=== PATIENT | male | born 1950 | race Caucasian/White ===

== ENCOUNTER 2016-08-19 14:08 | Inpatient (IN) | payer OTHER, MEDICARE ==
[~2016-08-19] VITALS: Ht 170.2 cm; Wt 76.9 kg
[~2016-08-19 14:08] MED LIST: ASPI81CH25 PO; BRIL90TA PO; CARV3.125 PO; LIPI40TA PO; LISI-519 PO; NITR1SUB3 SL
[2016-08-26] VITALS (10 sets, daily range): BP systolic 91–151; BP diastolic 62–88; PULSE 58–99; RESP 12–18; TEMP 97–97.5; O2SAT 98–99
[2016-08-26] MEDS ORDERED: VECURONIUM BROMIDE 10 MG VIAL IV ONE (05:00)
[2016-08-26] MEDS ORDERED: HEPARIN SODIUM - SQ 10,000 UNITS/ML VIAL SQ ONE (05:00)
[2016-08-26] MEDS ORDERED: ESMOLOL HCL 100 MG/10 ML VIAL IV ONE (05:00)
[2016-08-26] MEDS ORDERED: PROPOFOL 1000 MG/100 ML INJ 100 ML IV ONE (05:00)
[2016-08-26] MEDS ORDERED: NITROGLYCERIN-DEXTROSE INJ 250 ML IV ONE (05:00)
[2016-08-26] MEDS ORDERED: DEXTROSE 5% IN WATER 100ML INJ 100 ML IV ONE (05:00)
[2016-08-26] MEDS ORDERED: PHENYLEPHRINE HCL 10 MG/ML VIAL IV ONE (05:00)
[2016-08-26] MEDS ORDERED: MILRINONE LACTATE 20 MG/20 ML VIAL IV ONE (05:00)
[2016-08-26] MEDS ORDERED: MAGNESIUM SULFATE 1000 MG/2 ML VIAL (PED) IV ONE (05:00)
[2016-08-26] MEDS ORDERED: DEXMEDETOMIDINE INJ 50 ML IV ONE (05:00)
[2016-08-26] MEDS ORDERED: LIDOCAINE HCL 1% 30 ML VIAL OTHER ONE (05:00)
[2016-08-26] MEDS ORDERED: AMINOCAPROIC ACID INJ 250 MG/ML 20 ML VIAL IV ONE (05:00)
[2016-08-26] MEDS ORDERED: LIDOCAINE HCL 2% 100 MG/5 ML SYRINGE IV PUSH ONE (05:00)
[2016-08-26] MEDS ORDERED: PROTAMINE SULFATE 250 MG/25 ML VIAL IV ONE ×2 (05:00→11:26)
[2016-08-26] MEDS ORDERED: METOPROLOL TARTRATE 25 MG TAB PO SCH (06:15)
[2016-08-26] MEDS ORDERED: INSULIN REGULAR 100 UNITS in NS 100 ML IV SCH (06:15)
[2016-08-26] MEDS: LACTATED RINGER'S 1000 ML IV SCH (06:15)
[2016-08-26] MEDS ORDERED: SODIUM CHLORIDE 0.9% FLUSH 5 ML FLUSH IV FLUSH PRN ×2 (06:15→13:30)
[2016-08-26] MEDS ORDERED: CEFAZOLIN 500 MG in NS IRR BTL 500 ML IRRIGATION SCH (06:15)
[2016-08-26] MEDS ORDERED: PAPAVERINE 60 MG-NITROGLYCERIN 100 MCG-DILTIAZEM 100 MG in NS 100 ML IRRIGATION SCH ×4 (06:15)
[2016-08-26] MEDS ORDERED: ceFAZolin 2 GM PREMIX 50 ML IV SCH (06:15)
[2016-08-26] MEDS ORDERED: CHLORHEXIDINE GLUCONATE 4% SOLN 120 ML BTL TOPICAL SCH (06:15)
[2016-08-26] MEDS ORDERED: INSULIN HUMAN REGULAR 1,000 UNITS/10 ML VIAL SQ PRN (06:15)
[2016-08-26] MEDS ORDERED: HEPARIN SODIUM - IV 10,000 UNITS/10 ML VIAL ONE (06:24)
[2016-08-26] MEDS ORDERED: VANCOMYCIN HCL 1000 MG VIAL ONE (06:24)
[2016-08-26] MEDS ORDERED: HEPARIN SODIUM - SQ 10,000 UNITS/ML VIAL ONE (06:25)
[2016-08-26] MEDS ORDERED: BUPIVACAINE LIPOSO PF 1.3% INJ 20 ML, DEXAMETHASONE INJ 4 MG in SODIUM CHLORIDE 0.9% IN... PERIART SCH (08:45)
[2016-08-26] MEDS ORDERED: BUPIVACAINE HCL PF 0.5% 30 ML VIAL ONE (09:46)
--- NOTE | 2016-08-26 13:18 | RADRPT ---
EXAM DATE/TIME: 08/26/2016 12:41 [facility] COMPARISON: No previous studies available for comparison. INDICATIONS : Instrument verification. MEDICAL HISTORY : None. SURGICAL HISTORY : None. ENCOUNTER: Initial ACUITY: 1 day PAIN SCORE: Non-responsive. LOCATION: chest FINDINGS: The lateral view is incomplete and uninterpretable. There are 2 linear radiopaque densities in the ce ntral chest of unknown etiology. They have been marked with arrows. The remainder of the radiopaque d ensities are characteristic of support apparatus and sternotomy wires. Additional radiographs recomme nded to better evaluate the above findings. CONCLUSION: 1. Incomplete exam. See above discussion. Branden Hua MD on August 26, 2016 at 13:13 Board Certified Radiologist. This report was verified electronically.
[2016-08-26] MEDS ORDERED: DOBUTamine PREMIX DRIP 250 ML IV SCH (13:25)
[2016-08-26] MEDS ORDERED: DOPamine INJ PREMIX 500 ML IV SCH (13:30)
[2016-08-26] MEDS ORDERED: Post-op Orders (for Pharmacy) MISC OTHER ONE (13:30)
[2016-08-26] MEDS ORDERED: DEXTROSE 50% IN WATER 50 ML VIAL(D50) IV PUSH PRN (13:30)
[2016-08-26] MEDS ORDERED: PHENYLEPHRINE INJ 40 MG in DEXTROSE 5% IN WATE 500 ML INJ 496 ML IV SCH ×2 (13:30)
[2016-08-26] MEDS ORDERED: MEPERIDINE HCL 25 MG/ML VIAL IV PRN (13:30)
[2016-08-26] MEDS ORDERED: INSULIN REGULAR (IV INFUSION) 100 UNITS in SODIUM CHLORIDE 0.9% INJ 99 ML IV SCH (13:30)
[2016-08-26] MEDS ORDERED: ACETAMINOPHEN 650 MG SUPP RECTAL PRN (13:30)
[2016-08-26] MEDS ORDERED: POTASSIUM CHLOR 20 MEQ PREMIX 100 ML IV PRN ×2 (13:30)
[2016-08-26] MEDS ORDERED: KETOROLAC TROMETHAMINE 30 MG/ML (IVP) VIAL IV PUSH PRN (13:30)
[2016-08-26] MEDS ORDERED: METOPROLOL TARTRATE 5 MG/5 ML VIAL IV PUSH PRN (13:30)
[2016-08-26] MEDS ORDERED: ACETAMINOPHEN 325 MG TAB PO PRN (13:30)
[2016-08-26] MEDS ORDERED: ALBUMIN HUMAN 5% 12.5 GM/250 ML BOTTLE IV PRN (13:30)
[2016-08-26] MEDS ORDERED: DEXMEDETOMIDINE INJ 50 ML IV SCH (13:30)
[2016-08-26] MEDS ORDERED: MAGNESIUM SULFATE INJ 2 GM in SODIUM CHLORIDE 0.9% INJ 100 ML IV PRN (13:30)
[2016-08-26] MEDS ORDERED: hydrALAZINE HCL 20 MG/ML VIAL IV PRN (13:30)
[2016-08-26] MEDS ORDERED: POTASSIUM CHLORIDE 20 MEQ CONTROLLED RELEASE TAB PO PRN ×2 (13:30)
[2016-08-26] MEDS ORDERED: CALCIUM CHLORIDE 10% 1 GRAM/10 ML VIAL IV PRN (13:30)
[2016-08-26] MEDS ORDERED: MORPHINE SULFATE 4 MG/ML INJ IV PRN (13:30)
[2016-08-26] MEDS ORDERED: CLEVIDIPINE INJ 50 ML IV SCH (13:30)
[2016-08-26] MEDS ORDERED: NITROGLYCERIN-DEXTROSE INJ 250 ML IV SCH (13:30)
[2016-08-26] MEDS ORDERED: EPINEPHrine (1:1000) INJ 4 MG in DEXTROSE 5% IN WATER INJ 246 ML IV SCH ×2 (13:30)
[2016-08-26] MEDS ORDERED: LACTATED RINGER'S 1000 ML INJ 500 ML IV PRN (14:00)
[2016-08-26] MEDS ORDERED: MIDAZOLAM HCL 5 MG/5 ML VIAL ONE ×2 (14:45→14:46)
[2016-08-26] MEDS ORDERED: fentaNYL CITRATE 1000 MCG/20 ML VIAL ONE ×2 (14:46)
--- NOTE | 2016-08-26 15:14 | RADRPT ---
EXAM DATE/TIME: 08/26/2016 14:35 [facility] COMPARISON: CHEST SINGLE AP, August 26, 2016, 12:41. INDICATIONS: S/p CABG. MEDICAL HISTORY: Hypertension. Hypercholesterolemia, Meniere's disease, coronary artery disease SURGICAL HISTORY: Cardiac surgery. ENCOUNTER: Initial ACUITY: 1 day PAIN SCORE: Non-responsive. LOCATION: Bilateral chest FINDINGS: ET tube, mediastinal drain, central venous catheter and left chest tube are in good position. There is no pneumothorax. Heart and pulmonary vascularity are normal. CONCLUSION: Support apparatus in good position. Minimal parenchymal changes are present in the left base. Suhas Adkins MD FACR on August 26, 2016 at 15:02 Board Certified Radiologist. This report was verified electronically.
[2016-08-26] MEDS: ACETAMINOPHEN 1000 MG/100 ML VIAL IV SCH ×2 (15:24→20:40)
[2016-08-26] MEDS: ceFAZolin 2 GM PREMIX 50 ML IV SCH (15:25)
[2016-08-26] MEDS: CALCIUM CHLORIDE INJ 1 GM in SODIUM CHLORIDE 0.9% INJ 100 ML IV PRN (15:25)
[2016-08-26] MEDS ORDERED: METOPROLOL TARTRATE 5 MG/5 ML VIAL IV PUSH ONE (15:45)
[2016-08-26] MEDS ORDERED: RESP: RACEPINEPHRINE 2.25% 0.5 ML NEB NEB PRN (16:00)
[2016-08-26] MEDS ORDERED: RESP: ALBUTEROL 2.5 MG/IPRATROPIUM 0.5 MG NEB (PRN) NEB (16:00)
--- NOTE | 2016-08-26 16:05 | RADRPT ---
EXAM DATE/TIME: 08/26/2016 13:39 [facility] COMPARISON: No previous studies available for comparison. INDICATIONS : Instrument verification. MEDICAL HISTORY : None. SURGICAL HISTORY : None. ENCOUNTER: Initial ACUITY: 1 day PAIN SCORE: Non-responsive. LOCATION: chest FINDINGS: Postoperative median sternotomy. Endotracheal tube noted with radiopaque densities just above the car debby and left mainstem bronchus. Bilateral chest tubes. Right central line. CONCLUSION: 1. No unexpected radiopaque foreign bodies. Specifically no needle identified. Findings communicated with Dr. Hernandez. Branden Hua MD on August 26, 2016 at 16:01 Board Certified Radiologist. This report was verified electronically.
[2016-08-26] MEDS: RESP: ALBUTEROL 2.5 MG/IPRATROPIUM 0.5 MG NEB (SCH) NEB ×2 (16:27→21:15)
--- NOTE | 2016-08-26 16:30 | PD.OP ---
cc: Anita Hernandez MD; Ross Guzmán MD Operative Report Date of Surgery: Aug 26, 2016 Preoperative Diagnosis: Postoperative Diagnosis: Procedure: 1. Attempted Minimally Invasive Coronary Artery Bypass Grafting 2. Clampless Off-pump Coronary Artery Bypass Grafting x 3 with left internal mammary artery (HERNANDEZ) to left anterior descending (LAD), sequential reverse saphenous vein graft to Diagonal 1and to the Diagonal 2 2. Right Leg Endoscopic Vein [place] 3. Intraoperative Vein Mapping. . Surgeon: Anita Hernandez Green Meat Grader(s): Karl Sullivan Operation and Findings: PREPROCEDURE DIAGNOSES 1. Severe Multi Vessel Coronary Artery Disease. 2. Acute Myocardial Infarction - s/p emergent PCI 3. Mild Left Ventricular Dysfunction POSTPROCEDURE DIAGNOSES 1. Severe Multi Vessel Coronary Artery Disease. 2. Acute Myocardial Infarction - s/p emergent PCI 3. Mild Left Ventricular Dysfunction 4. Severe Pericarditis SURGICAL PROCEDURE 1. Attempted Minimally Invasive Coronary Artery Bypass Grafting 2. Clampless Off-pump Coronary Artery Bypass Grafting x 3 with left internal mammary artery (HERNANDEZ) to left anterior descending (LAD), sequential reverse saphenous vein graft to Diagonal 1and to the Diagonal 2 2. Right Leg Endoscopic Vein [place] 3. Intraoperative Vein Mapping. SURGEON Anita Hernandez MD REPAIR MILLER HARDIK [place] SEAL EXTRUSION OPERATOR ANESTHESIA General endotracheal . FIBER OPTIC TECHNICIAN Luma Castro, KATALINA Atkins, KATALINA James MD PREPARATION ChloraPrep. COUNTS Needle, sponge, and instrument counts were correct. DRAINS Two 32-[place] mediastinal tubes. COMPLICATIONS None. INDICATIONS FOR PROCEDURE The patient is a 66-year-old presenting with chest pain and STEMI. Patient was noted to have multi-vessel coronary artery disease and underwent emergent PCI to the RCA. The patient is being brought to the operating room for surgical revascularization therapy of the remaining lesions. PROCEDURE Patient was brought to the operating room and placed supine on the OR table with the left side slightly bumped. Following the induction of adequate general double-lumen endotracheal anesthesia and placement of appropriate monitoring devices, intraoperative vein mapping was performed which revealed suitable- caliber conduit in bilateral lower extremities. The patient was then prepped and draped in standard sterile fashion. Next, 2500 units of intravenous heparin was given. The right greater saphenous vein was harvested endoscopically. This appeared to be a useable-caliber conduit. Simultaneously, a small left anterior mini-thoracotomy was made and the incision carried down to the pectoralis fascia. This was divided and the pleural space was entered in the 4th ICS. It was noted that the heart and pericardial were densely adherent to the anterior chest wall. Sharp and blunt dissection was used to free up the anterior pericardial surface and expose the HERNANDEZ. Using the Thoratek retractor the HERNANDEZ was harvested as a pedicle from the Subclavian vein down to its bifurcation. The patient was systemically heparinized and anticoagulation monitored by serial ACT measurements. The internal mammary artery had good pulsatile flow in it and was a decent-caliber conduit. The pericardium was then divided and targets analyzed. Exploration of the anterior surface of the heart revealed severe pericarditis making visualization of the targets very difficult. Additionally, a separate anterior target vessel was identified in the LAD location which was not apparent on the coronary angiogram. Given this, I decided to proceed with a medial sternotomy to be able to accurately define the coronary anatomy and perform the necessary bypasses. The retractor was removed and a standard medial sternotomy performed. Indeed, the LAD and two diagonal vessels were identified and plans made to bypass all three targets. At this point, all anastomoses were performed in a beating-heart fashion using the Maquet stabilizing system. The left internal mammary artery was anastomosed to the mid LAD in an end-to-side fashion using 7-0 Prolene. Segment of saphenous vein graft was then anastomosed sequentially to the diagonal 1 in a side-to- side fashion and to the diagonal 2 in an end-to-side fashion using 7-0 Prolene.The proximal anastomosis was then constructed to the ascending aorta in a running clampless manner using 6-0 Prolene and the Heartstring III device. All anastomotic sites were inspected and appeared to be hemostatic and patent. Protamine solution was given. Strict hemostasis was assured. The closure was undertaken. 2 chest tubes were placed. The pericardium was reapproximated in the midline. The sternum was approximated using sternal wires. The muscular and fascial layer were then closed in 3 layers. The anterior thoracotomy was closed in 3 layers and dermabond. The endoscopic vein harvest site was closed in 2 layers. The patient tolerated the procedure well and was transferred to CVICU in stable condition. Anita Hernandez MD Aug 26, 2016 16:30
[2016-08-26] MEDS: POTASSIUM CHLOR 20 MEQ PREMIX 100 ML IV PRN ×2 (16:35→22:04)
[2016-08-26] MEDS: ONDANSETRON HCL 4 MG/2 ML VIAL IV PUSH PRN (17:33)
[2016-08-26] MEDS: AMIODARONE 200 MG TAB PO SCH (20:40)
[2016-08-26] MEDS: SODIUM CHLORIDE 0.9% FLUSH 5 ML FLUSH IV FLUSH SCH ×2 (20:40→20:41)
[2016-08-27] VITALS (21 sets, daily range): BP systolic 94–118; BP diastolic 61–71; PULSE 59–89; RESP 16–36; TEMP 97.8–98.4; O2SAT 91–99
[2016-08-27] MEDS: CALCIUM CHLORIDE INJ 1 GM in SODIUM CHLORIDE 0.9% INJ 100 ML IV PRN (00:31)
[2016-08-27] MEDS: ceFAZolin 2 GM PREMIX 50 ML IV SCH ×4 (00:31→23:44)
[2016-08-27] MEDS: ACETAMINOPHEN 1000 MG/100 ML VIAL IV SCH ×2 (02:11→08:21)
[2016-08-27] MEDS: RESP: ALBUTEROL 2.5 MG/IPRATROPIUM 0.5 MG NEB (SCH) NEB ×3 (03:42→21:48)
--- NOTE | 2016-08-27 04:30 | RADRPT ---
EXAM DATE/TIME: 08/27/2016 03:29 [facility] COMPARISON: CHEST SINGLE AP, August 26, 2016, 14:35. INDICATIONS : Shortness of breath, possible pulmonary disease. MEDICAL HISTORY : Hypertension. Hypercholesterolemia. Coronary artery disease. SURGICAL HISTORY : CABG. ENCOUNTER: Subsequent ACUITY: 2 days PAIN SCORE: 7/10 LOCATION: Bilateral chest FINDINGS: Interval extubation and removal of the nasogastric tube. Right-sided central line and 2 thoracostomy tubes remain. No pneumothorax. Bibasilar consolidation is more pronounced from the prior study. No di screte effusions. Heart mildly enlarged. Median sternotomy wires noted. CONCLUSION: Worsening bibasilar consolidation. Adelso Zarate Jr., MD on August 27, 2016 at 4:27 Board Certified Radiologist. This report was verified electronically.
[2016-08-27 05:20] LABS: HEMATOCRIT 25.9 % (39.0-51.0); MEAN CORPUSCULAR HGB CONC 35.2 % (32.0-36.0); PLATELET COUNT 97 TH/MM3 (150-450); RED BLOOD COUNT 2.95 MIL/MM3 (4.50-5.90); RED CELL DISTRIBUTION WIDTH 13.9 % (11.6-17.2); WHITE BLOOD COUNT 8.8 TH/MM3 (4.0-11.0)
[2016-08-27 05:27] LABS: REVIEW FLAG FINAL
[2016-08-27 05:53] LABS: BICARBONATE 22.4 MEQ/L (21.0-32.0); MAGNESIUM 1.5 MG/DL (1.5-2.5); POTASSIUM 3.6 MEQ/L (3.5-5.1)
[2016-08-27 06:04] LABS: CALCIUM-PROTEIN CORRECTED 8.9 MG/DL (8.5-10.1)
[2016-08-27] MEDS: LACTATED RINGER'S 1000 ML IV SCH (06:15)
[2016-08-27] MEDS: PANTOPRAZOLE SOD 40 MG DELAYED RELEASE TAB PO SCH (06:24)
[2016-08-27] MEDS: oxyCODONE/ACETAMINOPHEN 5 MG/325 MG TAB PO PRN ×4 (06:26→20:28)
--- NOTE | 2016-08-27 07:36 | EKG ---
Date Performed: 08/27/2016 Time Performed: 04:58:40 PTAGE: 66 years EKG: Sinus rhythm Nonspecific T wave changes Abnormal ECG COMPARED TO PRIOR ELECTROCARDIOGRAM, Rate has slowed and ST- T wave changes are less marked. PREVIOUS TRACING : 07/22/2016 06.34 DOCTOR: Claude oLcke Interpretating Date/Time 08/27/2016 07:34:33
[2016-08-27] MEDS: POTASSIUM CHLOR 20 MEQ PREMIX 100 ML IV PRN (07:44)
[2016-08-27] MEDS: MAGNESIUM SULFATE INJ 2 GM in SODIUM CHLORIDE 0.9% INJ 100 ML IV PRN (08:41)
[2016-08-27] MEDS: ASPIRIN 81 MG CHEW TAB PO SCH (09:00)
[2016-08-27] MEDS: CLOPIDOGREL 75 MG TAB PO SCH (09:02)
[2016-08-27] MEDS: AMIODARONE 200 MG TAB PO SCH ×2 (09:02→20:27)
[2016-08-27] MEDS: SODIUM CHLORIDE 0.9% FLUSH 5 ML FLUSH IV FLUSH SCH ×3 (09:02→20:29)
[2016-08-27] MEDS ORDERED: BISACODYL 10 MG SUPP RECTAL PRN (09:15)
[2016-08-27] MEDS ORDERED: DEXTROSE 50% IN WATER 50 ML VIAL(D50) IV PRN (09:15)
[2016-08-27] MEDS ORDERED: GLUCAGON 1 MG/ML VIAL OTHER PRN (09:15)
[2016-08-27] MEDS ORDERED: SOD PHOSPHATE/SOD BIPHOSPHATE (ADULT) ENEMA 133ML RECTAL PRN (09:15)
--- NOTE | 2016-08-27 09:29 | PD.CAR.PN ---
CVT Progress Note CVT: POD #: 1 Subjective/Hospital Course: 66/ male , HX CAD, s/p STEMI in Nov s/p PCI stent to RCA per Dr Meme Guzmán, also multi vessel disease, EF 55 on Brilinta at home PMH : HTN, HLP surgery: 08/26 Attempted Minimally Invasive Coronary Artery Bypass Grafting Clampless Off-pump Coronary Artery Bypass Grafting x 3 with left internal mammary artery (HERNANDEZ) to left anterior descending (LAD), sequential reverse saphenous vein graft to Diagonal 1and to the Diagonal 2 Right Leg Endoscopic Vein [place] atraumatic intubation EBL 250cc/ cell saver 770, 2600ml crystalloids , - 800 urine extubated post surgery 08/27 up in chair, feels fair. on nasal cannula in NSR , no pressors +1848/24hrs / may consider low dose diuresis aggressive pulm toileting transfer to stepdown, leave chest tube in place Objective: GENERAL: doing well SKIN: Warm and dry./ slightly pale / prevena dressing to chest, incision intact and well approximated to right leg HEAD: Normocephalic. EYES: No scleral icterus. No injection or drainage. NECK: Supple, trachea midline. No JVD or lymphadenopathy. CARDIOVASCULAR: Regular rate and rhythm without murmurs, gallops, or rubs. mild general edema RESPIRATORY: Breath sounds equal bilaterally. No accessory muscle use. chest tube to wall suction, no air leak / drained 350cc/12 hrs GASTROINTESTINAL: Abdomen soft, non-tender, nondistended. MUSCULOSKELETAL: No cyanosis, or edema. BACK: Nontender without obvious deformity. No CVA tenderness. Vital Signs Date Time Temp Pulse Resp B/P Pulse Ox O2 Delivery O2 Flow Rate FiO2 08/27/16 08:53 18 08/27/16 07:52 74 08/27/16 07:52 94 Nasal Cannula 3.00 08/27/16 07:49 98.4 74 17 106/64 94 08/27/16 07:45 18 08/27/16 07:29 96 Nasal Cannula 3.00 08/27/16 04:00 80 08/27/16 04:00 96 Nasal Cannula 4.00 08/27/16 04:00 97.9 79 16 109/61 96 Arterial Line 08/27/16 00:00 99 Nasal Cannula 4.00 08/27/16 00:00 76 08/27/16 00:00 97.8 76 16 94/62 99 103/67 08/26/16 21:30 98 Nasal Cannula 4.00 08/26/16 20:00 68 08/26/16 20:00 98 Nasal Cannula 4.00 08/26/16 20:00 97.5 68 18 92/62 98 91/67 08/26/16 18:30 67 08/26/16 16:00 97.0 71 16 126/71 99 08/26/16 16:00 71 08/26/16 15:43 99 Nasal Cannula 4.00 08/26/16 15:42 99 Nasal Cannula 4 08/26/16 15:12 98 40 08/26/16 15:10 40 08/26/16 14:35 98 Mechanical Ventilator 40 08/26/16 14:17 98 50 08/26/16 14:15 99 08/26/16 14:15 40 08/26/16 14:15 99 Mechanical Ventilator 50 08/26/16 14:15 97.4 99 12 101/71 99 114/67 Labs: Laboratory Tests Test 08/27/16 04:40 White Blood Count 8.8 TH/MM3 (4.0-11.0) Red Blood Count 2.95 MIL/MM3 (4.50-5.90) Hemoglobin 9.1 GM/DL (13.0-17.0) Hematocrit 25.9 % (39.0-51.0) Mean Corpuscular Volume 88.0 FL (80.0-100.0) Mean Corpuscular Hemoglobin 31.0 PG (27.0-34.0) Mean Corpuscular Hemoglobin 35.2 % Concent (32.0-36.0) Red Cell Distribution Width 13.9 % (11.6-17.2) Platelet Count 97 TH/MM3 (150-450) Mean Platelet Volume 10.0 FL (7.0-11.0) Sodium Level 145 MEQ/L (136-145) Potassium Level 3.6 MEQ/L (3.5-5.1) Chloride Level 113 MEQ/L (98-107) Carbon Dioxide Level 22.4 MEQ/L (21.0-32.0) Anion Gap 10 MEQ/L (5-15) Blood Urea Nitrogen 11 MG/DL (7-18) Creatinine 0.68 MG/DL (0.60-1.30) Estimat Glomerular Filtration 116 ML/MIN Rate (>89) Random Glucose 91 MG/DL (74-106) Calcium Level 7.1 MG/DL (8.5-10.1) Protein Corrected Calcium 8.9 MG/DL (8.5-10.1) Magnesium Level 1.5 MG/DL (1.5-2.5) Total Protein 4.0 GM/DL (6.4-8.2) Result Diagram: 08/27/1643908/27/16439 Telemetry: NSR (1) 3-vessel coronary artery disease (2) hx of STEMI / stent RCA Plan: was on Brilinta at home (3) S/P CABG x 3 Plan: ASA/ plavix, amiodarone, statin, BB consider low dose diuresis aggressive pulm toileting pt/ oob consult CM for dc planning transfer to stepdown unit (4) Hyperlipidemia Plan: resume statin (5) Blood loss anemia Plan: HGB 9.1/ monitor Eliz Deshpande Aug 27, 2016 09:29
[2016-08-27] MEDS: DOCUSATE SODIUM 100 MG CAP PO SCH ×2 (10:08→20:27)
[2016-08-27] MEDS: CARVEDILOL 3.125 MG TAB PO SCH ×2 (10:08→20:27)
[2016-08-27] MEDS: INSULIN ASPART SUPPLEMENTAL SCALE SQ SCH ×4 (10:11→22:45)
[2016-08-27] MEDS: ONDANSETRON HCL 4 MG/2 ML VIAL IV PUSH PRN (13:55)
[2016-08-27] MEDS: MAGNESIUM HYDROXIDE SUSP 30 ML CUP PO PRN (16:15)
[2016-08-27] MEDS: BISACODYL EC 5 MG TABEC PO PRN (20:33)
[2016-08-28] VITALS (27 sets, daily range): BP systolic 112–145; BP diastolic 71–99; PULSE 61–117; RESP 16–20; TEMP 97.9–99.9; O2SAT 91–97
[2016-08-28] MEDS: oxyCODONE/ACETAMINOPHEN 5 MG/325 MG TAB PO PRN ×4 (00:10→09:57)
[2016-08-28] MEDS: INSULIN ASPART SUPPLEMENTAL SCALE SQ SCH ×5 (01:46→21:00)
[2016-08-28] MEDS: PANTOPRAZOLE SOD 40 MG DELAYED RELEASE TAB PO SCH (04:58)
[2016-08-28 05:20] LABS: AUTOMATED NEUTROPHIL # 9.1 TH/MM3 (1.8-7.7); BASOPHIL % 0.2 % (0.0-2.0); EOSINOPHIL % 0.5 % (0.0-4.0); HEMATOCRIT 26.7 % (39.0-51.0); HEMO FLAGS DIFF FINAL; LYMPH % 8.1 % (9.0-44.0); LYMPHOCYTE # 0.9 TH/MM3 (1.0-4.8); MEAN CELL VOLUME 87.7 FL (80.0-100.0); MEAN CORPUSCULAR HEMOGLOBIN 30.2 PG (27.0-34.0); MEAN CORPUSCULAR HGB CONC 34.4 % (32.0-36.0); MONO % 8.9 % (0.0-8.0); NEUT % 82.3 % (16.0-70.0); PLATELET COUNT 100 TH/MM3 (150-450); RED BLOOD COUNT 3.04 MIL/MM3 (4.50-5.90); RED CELL DISTRIBUTION WIDTH 13.8 % (11.6-17.2)
[2016-08-28 05:55] LABS: BICARBONATE 28.3 MEQ/L (21.0-32.0); MAGNESIUM 2.1 MG/DL (1.5-2.5); POTASSIUM 4.2 MEQ/L (3.5-5.1)
[2016-08-28] MEDS: RESP: ALBUTEROL 2.5 MG/IPRATROPIUM 0.5 MG NEB (SCH) NEB ×3 (07:51→19:40)
[2016-08-28] MEDS: POLYETHYLENE GLYCOL 17 GM PKG PO SCH (08:43)
[2016-08-28] MEDS: DOCUSATE SODIUM 100 MG CAP PO SCH ×2 (08:44→21:09)
[2016-08-28] MEDS: ATORVASTATIN 40 MG TAB PO SCH (08:44)
[2016-08-28] MEDS: MULTIVITAMINS/MINERALS THERAPEUTIC TAB PO SCH (08:44)
[2016-08-28] MEDS: AMIODARONE 200 MG TAB PO SCH (08:44)
[2016-08-28] MEDS: CARVEDILOL 3.125 MG TAB PO SCH ×2 (08:45→21:09)
[2016-08-28] MEDS: ASPIRIN 81 MG CHEW TAB PO SCH (08:45)
[2016-08-28] MEDS: CLOPIDOGREL 75 MG TAB PO SCH (08:45)
[2016-08-28] MEDS: SODIUM CHLORIDE 0.9% FLUSH 5 ML FLUSH IV FLUSH SCH ×2 (08:45→21:10)
[2016-08-28] MEDS: ONDANSETRON HCL 4 MG/2 ML VIAL IV PUSH PRN (10:02)
[2016-08-28] MEDS ORDERED: POTASSIUM CHLORIDE 20 MEQ CONTROLLED RELEASE TAB PO ONE (10:45)
[2016-08-28] MEDS ORDERED: FUROSEMIDE 40 MG/4 ML VIAL IV PUSH ONE (10:45)
[2016-08-28] MEDS ORDERED: TAMSULOSIN HCL 0.4 MG CAP PO ONE (13:30)
[2016-08-28 14:30] LABS: BLOOD, URINE SMALL (NEG); COMMENT (UR) CULT NOT INDICATED; CULTURE IF INDICATED CULT NOT INDICATED; GLUCOSE,URINE NEG (NEG); HYALINE CAST, URINE 5 /lpf (RARE); KETONE, URINE NEG (NEG); MUCUS URINE FEW /lpf (OCC); NITRITE,URINE NEG (NEG); URINE COLOR LIGHT-YELLOW (YELLW/STRAW)
--- NOTE | 2016-08-28 15:38 | PD.CAR.PN ---
CVT Progress Note CVT: POD #: 2 Subjective/Hospital Course: 66/ male , HX CAD, s/p STEMI in Nov s/p PCI stent to RCA per Dr Meme Guzmán, also multi vessel disease, EF 55 on Brilinta at home PMH : HTN, HLP surgery: 08/26 Attempted Minimally Invasive Coronary Artery Bypass Grafting Clampless Off-pump Coronary Artery Bypass Grafting x 3 with left internal mammary artery (HERNANDEZ) to left anterior descending (LAD), sequential reverse saphenous vein graft to Diagonal 1and to the Diagonal 2 Right Leg Endoscopic Vein [place] atraumatic intubation EBL 250cc/ cell saver 770, 2600ml crystalloids , - 800 urine extubated post surgery 08/27 up in chair, feels fair. on nasal cannula in NSR , no pressors +1848/24hrs / may consider low dose diuresis aggressive pulm toileting transfer to stepdown, leave chest tube in place 08/28 chest tube drained 130/12 hrs , then additional 100cc today will leave in till am / re-eval for removal + nausea and vomiting / abd soft + bowel sounds passing some flatus, will add reglan / change po pain meds check LFT amylase and lipase Objective: GENERAL: not feeling well today / nauseated, vomiting SKIN: Warm and dry. HEAD: Normocephalic. EYES: No scleral icterus. No injection or drainage. NECK: Supple, trachea midline. No JVD or lymphadenopathy. CARDIOVASCULAR: Regular rate and rhythm without murmurs, gallops, or rubs. RESPIRATORY: diminished in bases chest tube no air leak, to wall suction Breath sounds equal bilaterally. No accessory muscle use. GASTROINTESTINAL: Abdomen soft, non-tender, nondistended. MUSCULOSKELETAL: No cyanosis, or edema. BACK: Nontender without obvious deformity. No CVA tenderness. Vital Signs Date Time Temp Pulse Resp B/P Pulse Ox O2 Delivery O2 Flow Rate FiO2 08/28/16 07:55 93 Nasal Cannula 4.00 08/28/16 07:00 97.9 82 19 112/71 92 08/28/16 07:00 92 Nasal Cannula 4.00 08/28/16 06:00 81 08/28/16 05:00 80 08/28/16 04:00 79 08/28/16 03:00 98.2 80 16 131/74 97 08/28/16 03:00 61 08/28/16 03:00 91 Nasal Cannula 3.00 08/28/16 02:00 79 08/28/16 01:00 77 08/28/16 00:00 81 08/27/16 23:00 91 Nasal Cannula 3.00 08/27/16 23:00 89 08/27/16 23:00 98.2 59 34 118/62 92 08/27/16 22:00 79 08/27/16 21:48 93 Nasal Cannula 3.00 08/27/16 21:00 76 08/27/16 20:00 83 08/27/16 19:30 91 Nasal Cannula 3.00 08/27/16 19:30 84 08/27/16 19:30 98.0 84 36 114/71 91 08/27/16 18:00 89 08/27/16 17:00 79 08/27/16 16:00 89 Labs: Laboratory Tests Test 08/28/16 08/28/16 05:00 14:00 White Blood Count 11.0 TH/MM3 (4.0-11.0) Red Blood Count 3.04 MIL/MM3 (4.50-5.90) Hemoglobin 9.2 GM/DL (13.0-17.0) Hematocrit 26.7 % (39.0-51.0) Mean Corpuscular Volume 87.7 FL (80.0-100.0) Mean Corpuscular Hemoglobin 30.2 PG (27.0-34.0) Mean Corpuscular Hemoglobin 34.4 % Concent (32.0-36.0) Red Cell Distribution Width 13.8 % (11.6-17.2) Platelet Count 100 TH/MM3 (150-450) Mean Platelet Volume 10.0 FL (7.0-11.0) Neutrophils (%) (Auto) 82.3 % (16.0-70.0) Lymphocytes (%) (Auto) 8.1 % (9.0-44.0) Monocytes (%) (Auto) 8.9 % (0.0-8.0) Eosinophils (%) (Auto) 0.5 % (0.0-4.0) Basophils (%) (Auto) 0.2 % (0.0-2.0) Neutrophils # (Auto) 9.1 TH/MM3 (1.8-7.7) Lymphocytes # (Auto) 0.9 TH/MM3 (1.0-4.8) Monocytes # (Auto) 1.0 TH/MM3 (0-0.9) Eosinophils # (Auto) 0.0 TH/MM3 (0-0.4) Basophils # (Auto) 0.0 TH/MM3 (0-0.2) CBC Comment DIFF FINAL Differential Comment Sodium Level 135 MEQ/L (136-145) Potassium Level 4.2 MEQ/L (3.5-5.1) Chloride Level 101 MEQ/L (98-107) Carbon Dioxide Level 28.3 MEQ/L (21.0-32.0) Anion Gap 6 MEQ/L (5-15) Blood Urea Nitrogen 13 MG/DL (7-18) Creatinine 0.82 MG/DL (0.60-1.30) Estimat Glomerular Filtration 94 ML/MIN (>89) Rate Random Glucose 114 MG/DL (74-106) Calcium Level 8.0 MG/DL (8.5-10.1) Magnesium Level 2.1 MG/DL (1.5-2.5) Urine Color LIGHT-YELLOW (YELLW/STRAW) Urine Turbidity CLEAR (CLEAR) Urine pH 5.0 (5.0-8.5) Urine Specific [place] 1.008 (1.002-1.035) Urine Protein NEG mg/dL (NEG-TRACE) Urine Glucose (UA) NEG mg/dL (NEG) Urine Ketones NEG mg/dL (NEG) Urine Occult Blood SMALL (NEG) Urine Nitrite NEG (NEG) Urine Bilirubin NEG (NEG) Urine Urobilinogen LESS THAN 2.0 MG/DL (LESS THAN 2.0) Urine Leukocyte Esterase TRACE (NEG) Urine RBC 2 /hpf (0-3) Urine WBC 2 /hpf (0-5) Urine Hyaline Casts 5 /lpf (RARE) Urine Mucus FEW /lpf (OCC) Microscopic Urinalysis Comment CULT NOT INDICATED Result Diagram: 08/28/16 0500 08/28/16 0500 Telemetry: NSR (1) 3-vessel coronary artery disease (2) hx of STEMI / stent RCA Plan: was on Brilinta at home / discussed with francisco javier Darden for plavix (3) S/P CABG x 3 Plan: ASA/ plavix, amiodarone, statin, BB gentle diuresis this am aggressive pulm toileting pt/ oob consult CM for dc planning (4) Hyperlipidemia Plan: resume statin (5) Blood loss anemia Plan: HGB 9.1/ monitor (6) Nausea & vomiting Plan: antiemetics/ reglan added check amylase and lipase Eliz Deshpande Aug 28, 2016 15:38
[2016-08-28] MEDS ORDERED: KETOROLAC TROMETHAMINE 30 MG/ML (IVP) VIAL IV PUSH PRN (16:00)
[2016-08-28] MEDS: METOCLOPRAMIDE HCL 10 MG/2 ML VIAL IV PUSH SCH ×2 (16:04→21:03)
--- NOTE | 2016-08-28 16:07 | HHI.FF ---
Face to Face Verification Diagnosis: (1) ST elevation (STEMI) myocardial infarction (2) Blood loss anemia (3) Hyperlipidemia (4) Stented coronary artery (5) S/P CABG x 3 Physical Therapy Order: Evaluate and Treat Home Health Nursing Order: Signs/symptoms of disease process Wound care and dressing changes Nursing assessment with vital signs Instructions: Heart and Vascular Surgery patients *Special attention to sternal dressing Mandatory frequency Assess and evaluation, 4 days in a row The next week 3X week 2 times a week for 4 weeks 1 time a week for 5 weeks Schedule Heart and Vascular patients for full 60 day certification period Initial visit Review Open Heart Surgery Discharge Instructions (Sternal precautions, Activity, Elastic hose, Incision care, Driving, Incentive spirometry, Smoking, [place], Work and other) Need Betadine to paint incision Medication reconciliation Importance of follow up care/ check on appointments Make calendar record temperature daily When to call [facility] nurse, review instructions, phone list Incentive Spirometry, demonstration Visit 1- Begin discharge instruction for patient family and/ or caregiver using teach back method- Signs and symptoms of infection Disease characteristics Medicines and side effects Foods and nutrition/ appetite Infection control/ hand washing/ hygiene Visit 2- Continue teaching Discharge instructions- include additional information on smoking cessation , sternal dressing (sternal vac) Visit 3- Continue teaching- Cough and deep breathing, incision monitoring. Choose my plate Visit 4- Continue teaching- Discuss limitations Discuss how they are feeling Discuss progress toward goals Remaining visits- continue teaching and monitoring Incentive spirometry Q1 hr x 10, while awake, also use acapella device hourly whole awake Sternal Breast Bone Precautions: NO pushing or pulling, ( pt must use sternal pillow to support chest with all activities and with coughing ( takes up to 3 months breast bone to heal ) Daily incision care: ok to shower daily, no tub bath. Wash all incisions with liquid dial soap, clean wash cloth to each site, rinse and pat dry. Observe for any signs of infection, such as drainage which is dark yellow, [place], green or foul smelling. Immediately report to the surgeon any drainage from the chest incision, or legs, and for any abnormal drainage from the chest tube sites. Notify surgeon if any temp >101.5 degrees F. When specialty dressing removed/ or if you do not have one, continue to shower daily as above, then rinse and pat incision dry and paint with betadine daily x 5 days. Allow steri strips to fall off if you have any. Avoid lotions, creams, salves, oils, etc. for the first month Please see attached forms for additional instructions regarding post Open Heart specialty wound vacuum dressings. NAVNEET or Prevena , Dressing to be removed by Nursing staff on __09/02/16 F/U appointment: as per [facility] instructions: PCP in 2 weeks, CV surgeon @ 2 weeks, Elementary Education Tutor 3-4 weeks For any questions regarding incisions/ dressing / meds / post op care or above symptoms, please call Thoracic and Cardiovascular office for Dr Hernandez and Dr. Lund . Thoracic and Cardiovascular office: [phone] or Vera Bermudez Nurse Navigator: [phone] or [facility] charge nurse at [phone] I have seen patient Malcom Beaulieu on 08/28/16. My clinical findings support the need for the requested home health care services because: Deconditioned w/ increased weakness I certify that my clinical findings support that this patient is homebound because: Post-op weakness Eliz Deshpande Aug 28, 2016 16:07
[2016-08-28] MEDS ORDERED: GETGO ROLLING W1 MI1 (16:08)
[2016-08-28 16:30] LABS: INDIRECT BILIRUBIN 0.2 MG/DL (0.0-0.8); TOTAL BILIRUBIN ADULT 0.3 MG/DL (0.2-1.0)
[2016-08-28] MEDS ORDERED: ACETAMINOPHEN 1000 MG/100 ML VIAL IV PRN (17:00)
[2016-08-28] MEDS: ACETAMINOPHEN/HYDROcodone 325 MG/5 MG TAB PO PRN (21:09)
[2016-08-29] VITALS (25 sets, daily range): BP systolic 98–116; BP diastolic 69–76; PULSE 60–104; RESP 18–20; TEMP 98–99.9; O2SAT 92–99
[2016-08-29] MEDS: METOCLOPRAMIDE HCL 10 MG/2 ML VIAL IV PUSH SCH ×2 (06:24→14:32)
[2016-08-29] MEDS: ACETAMINOPHEN/HYDROcodone 325 MG/5 MG TAB PO PRN ×3 (06:24→21:12)
[2016-08-29] MEDS: PANTOPRAZOLE SOD 40 MG DELAYED RELEASE TAB PO SCH (06:25)
[2016-08-29] MEDS: INSULIN ASPART SUPPLEMENTAL SCALE SQ SCH ×4 (06:27→21:00)
[2016-08-29] MEDS: RESP: ALBUTEROL 2.5 MG/IPRATROPIUM 0.5 MG NEB (SCH) NEB (07:52)
[2016-08-29 08:54] LABS: AUTOMATED NEUTROPHIL # 7.7 TH/MM3 (1.8-7.7); BASOPHIL % 0.4 % (0.0-2.0); EOSINOPHIL % 0.3 % (0.0-4.0); HEMO FLAGS DIFF FINAL; LYMPH % 7.1 % (9.0-44.0); LYMPHOCYTE # 0.7 TH/MM3 (1.0-4.8); MEAN CELL VOLUME 86.8 FL (80.0-100.0); MEAN CORPUSCULAR HEMOGLOBIN 30.9 PG (27.0-34.0); MEAN CORPUSCULAR HGB CONC 35.6 % (32.0-36.0); MONO % 8.9 % (0.0-8.0); NEUT % 83.3 % (16.0-70.0); PLATELET COUNT 104 TH/MM3 (150-450); RED BLOOD COUNT 2.76 MIL/MM3 (4.50-5.90); RED CELL DISTRIBUTION WIDTH 13.6 % (11.6-17.2); WHITE BLOOD COUNT 9.3 TH/MM3 (4.0-11.0)
[2016-08-29] MEDS: ATORVASTATIN 40 MG TAB PO SCH (09:00)
[2016-08-29 09:08] LABS: ALT (GPT) 17 U/L (12-78); ANION GAP 6 MEQ/L (5-15); BICARBONATE 31.3 MEQ/L (21.0-32.0); BLOOD UREA NITROGEN 12 MG/DL (7-18); CHLORIDE 98 MEQ/L (98-107); GLOMERULAR FILTRATION RATE 95 ML/MIN (>89); POTASSIUM 3.9 MEQ/L (3.5-5.1); SODIUM (NA) 135 MEQ/L (136-145)
[2016-08-29 09:10] LABS: ALKALINE PHOSPHATASE 46 U/L (45-117); AST (GOT) 17 U/L (15-37); TOTAL BILIRUBIN ADULT 0.4 MG/DL (0.2-1.0)
[2016-08-29] MEDS: POLYETHYLENE GLYCOL 17 GM PKG PO SCH (09:35)
[2016-08-29] MEDS: CARVEDILOL 3.125 MG TAB PO SCH ×2 (09:35→21:11)
[2016-08-29] MEDS: DOCUSATE SODIUM 100 MG CAP PO SCH ×2 (09:35→21:11)
[2016-08-29] MEDS: MULTIVITAMINS/MINERALS THERAPEUTIC TAB PO SCH (09:35)
[2016-08-29] MEDS: ASPIRIN 81 MG CHEW TAB PO SCH (09:35)
[2016-08-29] MEDS: CLOPIDOGREL 75 MG TAB PO SCH (09:35)
[2016-08-29] MEDS: SODIUM CHLORIDE 0.9% FLUSH 5 ML FLUSH IV FLUSH SCH ×2 (09:36→21:12)
[2016-08-29] MEDS: TAMSULOSIN HCL 0.4 MG CAP PO SCH (09:36)
[2016-08-29] MEDS ORDERED: TAMSULOSIN HCL 0.4 MG CAP PO SCH (10:45)
--- NOTE | 2016-08-29 12:20 | PD.CAR.PN ---
CVT Progress Note CVT: POD #: 3 Subjective/Hospital Course: 66/ male , HX CAD, s/p STEMI in Nov s/p PCI stent to RCA per Dr Meme Guzmán, also multi vessel disease, EF 55 on Brilinta at home PMH : HTN, HLP surgery: 08/26 Attempted Minimally Invasive Coronary Artery Bypass Grafting Clampless Off-pump Coronary Artery Bypass Grafting x 3 with left internal mammary artery (HERNANDEZ) to left anterior descending (LAD), sequential reverse saphenous vein graft to Diagonal 1and to the Diagonal 2 Right Leg Endoscopic Vein [place] atraumatic intubation EBL 250cc/ cell saver 770, 2600ml crystalloids , - 800 urine extubated post surgery 08/27 up in chair, feels fair. on nasal cannula in NSR , no pressors +1848/24hrs / may consider low dose diuresis aggressive pulm toileting transfer to stepdown, leave chest tube in place 08/28 chest tube drained 130/12 hrs , then additional 100cc today will leave in till am / re-eval for removal + nausea and vomiting / abd soft + bowel sounds passing some flatus, will add reglan / change po pain meds check LFT amylase and lipase 08/29/16 c/o incisional pain Objective: Vital Signs Date Time Temp Pulse Resp B/P Pulse Ox O2 Delivery O2 Flow Rate FiO2 08/29/16 12:09 98 Nasal Cannula 08/29/16 12:09 98.0 89 18 101/74 98 08/29/16 12:04 78 08/29/16 10:00 87 08/29/16 09:00 87 08/29/16 08:00 84 08/29/16 07:52 93 Nasal Cannula 3.00 08/29/16 07:00 95 Nasal Cannula 2.00 08/29/16 07:00 98.8 87 18 99/69 95 08/29/16 07:00 90 08/29/16 06:19 98.7 93 18 102/73 92 08/29/16 06:17 95 Nasal Cannula 2.00 08/29/16 06:00 88 08/29/16 01:00 94 08/29/16 00:51 99.9 98 18 116/76 93 08/29/16 00:14 95 Nasal Cannula 2.50 08/29/16 00:00 94 08/28/16 23:00 117 08/28/16 22:00 96 08/28/16 21:29 94 Nasal Cannula 2.50 08/28/16 21:24 99.9 95 18 118/77 94 08/28/16 21:00 97 08/28/16 20:00 95 08/28/16 19:45 91 Nasal Cannula 3.00 08/28/16 19:00 86 08/28/16 18:00 86 08/28/16 17:00 76 08/28/16 16:00 80 08/28/16 15:00 98.2 80 19 135/86 96 08/28/16 15:00 84 08/28/16 15:00 95 2.50 08/28/16 14:00 83 08/28/16 13:00 76 Labs: Laboratory Tests Test 08/29/16 07:54 White Blood Count 9.3 TH/MM3 (4.0-11.0) Red Blood Count 2.76 MIL/MM3 (4.50-5.90) Hemoglobin 8.5 GM/DL (13.0-17.0) Hematocrit 24.0 % (39.0-51.0) Mean Corpuscular Volume 86.8 FL (80.0-100.0) Mean Corpuscular Hemoglobin 30.9 PG (27.0-34.0) Mean Corpuscular Hemoglobin 35.6 % Concent (32.0-36.0) Red Cell Distribution Width 13.6 % (11.6-17.2) Platelet Count 104 TH/MM3 (150-450) Mean Platelet Volume 9.7 FL (7.0-11.0) Neutrophils (%) (Auto) 83.3 % (16.0-70.0) Lymphocytes (%) (Auto) 7.1 % (9.0-44.0) Monocytes (%) (Auto) 8.9 % (0.0-8.0) Eosinophils (%) (Auto) 0.3 % (0.0-4.0) Basophils (%) (Auto) 0.4 % (0.0-2.0) Neutrophils # (Auto) 7.7 TH/MM3 (1.8-7.7) Lymphocytes # (Auto) 0.7 TH/MM3 (1.0-4.8) Monocytes # (Auto) 0.8 TH/MM3 (0-0.9) Eosinophils # (Auto) 0.0 TH/MM3 (0-0.4) Basophils # (Auto) 0.0 TH/MM3 (0-0.2) CBC Comment DIFF FINAL Differential Comment Sodium Level 135 MEQ/L (136-145) Potassium Level 3.9 MEQ/L (3.5-5.1) Chloride Level 98 MEQ/L (98-107) Carbon Dioxide Level 31.3 MEQ/L (21.0-32.0) Anion Gap 6 MEQ/L (5-15) Blood Urea Nitrogen 12 MG/DL (7-18) Creatinine 0.81 MG/DL (0.60-1.30) Estimat Glomerular Filtration 95 ML/MIN (>89) Rate Random Glucose 121 MG/DL (74-106) Calcium Level 8.1 MG/DL (8.5-10.1) Phosphorus Level 2.3 MG/DL (2.5-4.9) Magnesium Level 2.0 MG/DL (1.5-2.5) Total Bilirubin 0.4 MG/DL (0.2-1.0) Aspartate Amino Transf 17 U/L (15-37) (AST/SGOT) Alanine Aminotransferase 17 U/L (12-78) (ALT/SGPT) Alkaline Phosphatase 46 U/L (45-117) Total Protein 5.4 GM/DL (6.4-8.2) Albumin 2.4 GM/DL (3.4-5.0) Result Diagram: 08/29/16 0754 08/29/16 0754 Cardiovascular: RRR Telemetry: NSR Pulmonary: CTA GI/: NABS, NT Incision: dry and intact CT: 50ml/12 hrs Plan: Encourage ambulation Stim BM D/C chest tubes Diurese, supp K Wean O2 (1) 3-vessel coronary artery disease (2) hx of STEMI / stent RCA Plan: was on Brilinta at home / discussed with francisco javier Darden for plavix (3) S/P CABG x 3 Plan: ASA/ plavix, amiodarone, statin, BB gentle diuresis this am aggressive pulm toileting pt/ oob consult CM for dc planning (4) Hyperlipidemia Plan: resume statin (5) Blood loss anemia Plan: HGB 9.1/ monitor (6) Nausea & vomiting Plan: antiemetics/ reglan added check amylase and lipase Michelle Carvajal MD Aug 29, 2016 12:20
[2016-08-29] MEDS: MAGNESIUM HYDROXIDE SUSP 30 ML CUP PO PRN (17:52)
[2016-08-29] MEDS: BISACODYL EC 5 MG TABEC PO PRN (17:52)
[2016-08-29] MEDS: FUROSEMIDE 40 MG/4 ML VIAL IV PUSH SCH (18:32)
[2016-08-29] MEDS: POTASSIUM CHLORIDE 10 MEQ CONTROLLED RELEASE TAB PO SCH (21:11)
[2016-08-30] VITALS (27 sets, daily range): BP systolic 103–118; BP diastolic 63–82; PULSE 70–97; RESP 17–20; TEMP 97.8–98.9; O2SAT 92–98
[2016-08-30] MEDS: PANTOPRAZOLE SOD 40 MG DELAYED RELEASE TAB PO SCH (05:51)
[2016-08-30] MEDS: ACETAMINOPHEN/HYDROcodone 325 MG/5 MG TAB PO PRN ×3 (05:57→21:39)
[2016-08-30] MEDS: INSULIN ASPART SUPPLEMENTAL SCALE SQ SCH ×4 (06:03→21:00)
[2016-08-30] MEDS: MAGNESIUM HYDROXIDE SUSP 30 ML CUP PO PRN (09:14)
[2016-08-30] MEDS: TAMSULOSIN HCL 0.4 MG CAP PO SCH (09:14)
[2016-08-30] MEDS: DOCUSATE SODIUM 100 MG CAP PO SCH ×2 (09:14→21:23)
[2016-08-30] MEDS: POLYETHYLENE GLYCOL 17 GM PKG PO SCH (09:14)
[2016-08-30] MEDS: ATORVASTATIN 40 MG TAB PO SCH (09:15)
[2016-08-30] MEDS: CARVEDILOL 3.125 MG TAB PO SCH ×2 (09:15→21:23)
[2016-08-30] MEDS: ASPIRIN 81 MG CHEW TAB PO SCH (09:15)
[2016-08-30] MEDS: POTASSIUM CHLORIDE 10 MEQ CONTROLLED RELEASE TAB PO SCH ×2 (09:15→21:23)
[2016-08-30] MEDS: MULTIVITAMINS/MINERALS THERAPEUTIC TAB PO SCH (09:15)
[2016-08-30] MEDS: CLOPIDOGREL 75 MG TAB PO SCH (09:15)
[2016-08-30] MEDS: FUROSEMIDE 40 MG/4 ML VIAL IV PUSH SCH ×2 (09:17→18:21)
[2016-08-30] MEDS: SODIUM CHLORIDE 0.9% FLUSH 5 ML FLUSH IV FLUSH SCH ×2 (09:17→21:27)
--- NOTE | 2016-08-30 11:15 | PD.CAR.PN ---
CVT Progress Note CVT: POD #: 4 Subjective/Hospital Course: 66/ male , HX CAD, s/p STEMI in Nov s/p PCI stent to RCA per Dr Meme Guzmán, also multi vessel disease, EF 55 on Brilinta at home PMH : HTN, HLP surgery: 08/26 Attempted Minimally Invasive Coronary Artery Bypass Grafting Clampless Off-pump Coronary Artery Bypass Grafting x 3 with left internal mammary artery (HERNANDEZ) to left anterior descending (LAD), sequential reverse saphenous vein graft to Diagonal 1and to the Diagonal 2 Right Leg Endoscopic Vein [place] atraumatic intubation EBL 250cc/ cell saver 770, 2600ml crystalloids , - 800 urine extubated post surgery 08/27 up in chair, feels fair. on nasal cannula in NSR , no pressors +1848/24hrs / may consider low dose diuresis aggressive pulm toileting transfer to stepdown, leave chest tube in place 08/28 chest tube drained 130/12 hrs , then additional 100cc today will leave in till am / re-eval for removal + nausea and vomiting / abd soft + bowel sounds passing some flatus, will add reglan / change po pain meds check LFT amylase and lipase 08/29/16 c/o incisional pain 08/30/16 Doing better, diuresed well On room air No BM Objective: Vital Signs Date Time Temp Pulse Resp B/P Pulse Ox O2 Delivery O2 Flow Rate FiO2 08/30/16 10:22 94 08/30/16 10:00 84 08/30/16 09:00 93 08/30/16 08:00 90 08/30/16 07:00 94 Room Air 08/30/16 07:00 80 08/30/16 07:00 97.8 83 18 116/73 94 08/30/16 04:27 98.9 88 20 117/76 93 08/30/16 04:23 93 Nasal Cannula 1.00 08/30/16 04:00 84 08/30/16 03:00 91 08/30/16 02:00 88 08/30/16 01:00 88 08/30/16 00:00 87 08/29/16 23:40 98.9 90 20 98/70 92 08/29/16 23:35 93 Nasal Cannula 1.00 08/29/16 23:00 91 08/29/16 22:00 98 08/29/16 21:15 99.1 104 20 115/75 92 08/29/16 21:03 92 Nasal Cannula 1.00 08/29/16 21:00 100 08/29/16 20:00 98 08/29/16 19:00 87 08/29/16 18:00 60 08/29/16 17:00 97 08/29/16 16:00 77 08/29/16 15:00 99.1 74 18 105/69 99 08/29/16 15:00 84 08/29/16 15:00 99 Nasal Cannula 1.00 08/29/16 14:07 80 08/29/16 13:30 84 08/29/16 12:09 98 Nasal Cannula 08/29/16 12:09 98.0 89 18 101/74 98 08/29/16 12:04 78 Result Diagram: 08/29/16 0754 08/29/16 0754 Cardiovascular: RRR Telemetry: NSR Pulmonary: CTA GI/: NABS, NT Incision: dry and intact Plan: Stim BM Continue lasix Anticipate d/c tomorrow (1) 3-vessel coronary artery disease (2) hx of STEMI / stent RCA Plan: was on Brilinta at home / discussed with francisco javier Darden for plavix (3) S/P CABG x 3 Plan: ASA/ plavix, amiodarone, statin, BB gentle diuresis this am aggressive pulm toileting pt/ oob consult CM for dc planning (4) Hyperlipidemia Plan: resume statin (5) Blood loss anemia Plan: HGB 9.1/ monitor (6) Nausea & vomiting Plan: antiemetics/ reglan added check amylase and lipase Michelle Carvajal MD Aug 30, 2016 11:15
[2016-08-31] VITALS (16 sets, daily range): BP systolic 107–139; BP diastolic 73–75; PULSE 76–89; RESP 17–20; TEMP 97.3–98.2; O2SAT 92–98
[2016-08-31] MEDS: ACETAMINOPHEN/HYDROcodone 325 MG/5 MG TAB PO PRN (06:24)
[2016-08-31] MEDS: INSULIN ASPART SUPPLEMENTAL SCALE SQ SCH ×2 (06:24→11:00)
[2016-08-31] MEDS: PANTOPRAZOLE SOD 40 MG DELAYED RELEASE TAB PO SCH (06:24)
[2016-08-31] MEDS: TAMSULOSIN HCL 0.4 MG CAP PO SCH (09:20)
[2016-08-31] MEDS: DOCUSATE SODIUM 100 MG CAP PO SCH (09:20)
[2016-08-31] MEDS: POTASSIUM CHLORIDE 10 MEQ CONTROLLED RELEASE TAB PO SCH (09:20)
[2016-08-31] MEDS: ASPIRIN 81 MG CHEW TAB PO SCH (09:20)
[2016-08-31] MEDS: ATORVASTATIN 40 MG TAB PO SCH (09:20)
[2016-08-31] MEDS: CLOPIDOGREL 75 MG TAB PO SCH (09:20)
[2016-08-31] MEDS: FUROSEMIDE 40 MG/4 ML VIAL IV PUSH SCH (09:21)
[2016-08-31] MEDS: MULTIVITAMINS/MINERALS THERAPEUTIC TAB PO SCH (09:21)
[2016-08-31] MEDS: CARVEDILOL 3.125 MG TAB PO SCH (09:21)
[2016-08-31] MEDS: POLYETHYLENE GLYCOL 17 GM PKG PO SCH (09:21)
[2016-08-31] MEDS: SODIUM CHLORIDE 0.9% FLUSH 5 ML FLUSH IV FLUSH SCH (09:21)
--- NOTE | 2016-08-31 10:02 | RADRPT ---
EXAM DATE/TIME: 08/31/2016 09:07 [facility] COMPARISON: CHEST SINGLE AP, August 27, 2016, 3:29. INDICATIONS: Chest tube removal MEDICAL HISTORY: Myocardial infarction. SURGICAL HISTORY: Coronary artery stent. CABG. ENCOUNTER: Initial ACUITY: 1 week PAIN SCORE: 0/10 LOCATION: Bilateral chest FINDINGS: Mediastinal wires are noted status post cardiac surgery. The left chest tube has been removed. No p neumothorax is noted. A right internal jugular Angie-Darin catheter has also been removed. Bibasilar atelectasis is unchanged. A mediastinal tube has also been removed. CONCLUSION: 1. No pneumothorax status post removal of left chest and mediastinal tube. 2. Mild cardiomegaly. 3. Bibasilar atelectasis. Anup Saldana MD on August 31, 2016 at 9:47 Board Certified Radiologist. This report was verified electronically.
[2016-08-31 10:48] LABS: BICARBONATE 31.2 MEQ/L (21.0-32.0); MAGNESIUM 2.2 MG/DL (1.5-2.5); POTASSIUM 3.9 MEQ/L (3.5-5.1)
[2016-08-31] MEDS ORDERED: PLAV75TA29 PO (11:41)
[2016-08-31] MEDS ORDERED: THERM PO (11:41)
[2016-08-31] MEDS ORDERED: DOCU1CAP39 PO (11:41)
[2016-08-31] MEDS ORDERED: CARV3.125 PO (11:41)
[2016-08-31] MEDS ORDERED: TAMS5CAP PO (11:41)
[2016-08-31] MEDS ORDERED: FURO1TAB62 PO (11:41)
[2016-08-31] MEDS ORDERED: POTA10TA2 PO (11:41)
--- NOTE | 2016-08-31 14:06 | HHI.DS ---
Discharge Summary Admission Date Aug 26, 2016 at 05:32 Admitting Diagnosis (1) hx of STEMI / stent RCA Diagnosis: Secondary (2) Hyperlipidemia Diagnosis: Principal (3) 3-vessel coronary artery disease Diagnosis: Principal (4) S/P CABG x 3 Diagnosis: Secondary (5) Blood loss anemia Diagnosis: Secondary Procedures / 1. Attempted Minimally Invasive Coronary Artery Bypass Grafting 2. Clampless Off-pump Coronary Artery Bypass Grafting x 3 with left internal mammary artery (HERNANDEZ) to left anterior descending (LAD), sequential reverse saphenous vein graft to Diagonal 1and to the Diagonal 2 2. Right Leg Endoscopic Vein [place] 3. Intraoperative Vein Mapping. . Brief History Subjective/Hospital Course: 66/ male , HX CAD, s/p STEMI in Nov s/p PCI stent to RCA per Dr Meme Guzmán, also multi vessel disease, EF 55 on Brilinta at home PMH : HTN, HLP surgery: 08/26 Attempted Minimally Invasive Coronary Artery Bypass Grafting Clampless Off-pump Coronary Artery Bypass Grafting x 3 with left internal mammary artery (HERNANDEZ) to left anterior descending (LAD), sequential reverse saphenous vein graft to Diagonal 1and to the Diagonal 2 Right Leg Endoscopic Vein [place] atraumatic intubation EBL 250cc/ cell saver 770, 2600ml crystalloids , - 800 urine extubated post surgery CBC/BMP: 08/29/16 0754 08/31/16 1010 Significant Findings Laboratory Tests Test 08/29/16 08/31/16 07:54 10:10 Red Blood Count 2.76 MIL/MM3 (4.50-5.90) Hemoglobin 8.5 GM/DL (13.0-17.0) Hematocrit 24.0 % (39.0-51.0) Platelet Count 104 TH/MM3 (150-450) Neutrophils (%) (Auto) 83.3 % (16.0-70.0) Lymphocytes (%) (Auto) 7.1 % (9.0-44.0) Monocytes (%) (Auto) 8.9 % (0.0-8.0) Lymphocytes # (Auto) 0.7 TH/MM3 (1.0-4.8) Sodium Level 135 MEQ/L 132 MEQ/L (136-145) (136-145) Random Glucose 121 MG/DL 169 MG/DL (74-106) (74-106) Calcium Level 8.1 MG/DL (8.5-10.1) Phosphorus Level 2.3 MG/DL (2.5-4.9) Total Protein 5.4 GM/DL (6.4-8.2) Albumin 2.4 GM/DL (3.4-5.0) Chloride Level 92 MEQ/L (98-107) Estimat Glomerular Filtration 81 ML/MIN (>89) Rate PE at Discharge GENERAL: SKIN: Warm and dry./ incision intact and well approximated to chest HEAD: Normocephalic. EYES: No scleral icterus. No injection or drainage. NECK: Supple, trachea midline. No JVD or lymphadenopathy. CARDIOVASCULAR: Regular rate and rhythm without murmurs, gallops, or rubs. RESPIRATORY: Breath sounds equal bilaterally. No accessory muscle use. GASTROINTESTINAL: Abdomen soft, non-tender, nondistended. MUSCULOSKELETAL: No cyanosis, or edema. BACK: Nontender without obvious deformity. No CVA tenderness. Pt Condition on Discharge: Good Discharge Disposition: Disch w/ Home Health Serv Discharge Instructions DIET: Follow Instructions for: Heart Healthy Diet Activities you can perform: Full Weight Bearing, Shower Only-No Bath Activities to avoid: Prolonged Standing, Strenuous Activity, Driving Additional Activity Instructio: no lifting >8lbs or gallon of milk Follow up Referrals: Cardiology - 4 Weeks with Ross Guzmán MD PCP Follow-up - 2 Weeks with kevin lopez [facility] - 09/11/16 with Anita Hernandez MD New Medications: Furosemide (Lasix) 20 Mg Tab 20 MG PO DAILY edema #7 Ref 0 TAB Potassium Chloride ER (Potassium Chloride ER) 10 Meq Tab 10 MEQ PO DAILY Electrolyte Replacement #7 Ref 0 TAB Walker Rolling/GetGo (Walker Rolling/GetGo) 1 Mis Mis 1 EA .ROUTE DIRECTED #1 EA Carvedilol (Coreg) 3.125 Mg Tab 6.25 MG PO BID Blood Pressure Management #60 Ref 2 TAB Clopidogrel (Plavix) 75 Mg Tab 75 MG PO DAILY Blood Clot Prevention #30 Ref 2 TAB Docusate Sodium (Dok) 100 Mg Cap 100 MG PO BID Constipation #60 CAP Multiple Vitamins W/ Minerals (Thera M Plus) 1 Tab 1 TAB PO DAILY multi vitamin #30 TAB Tamsulosin (Flomax) 0.4 Mg Cap 0.4 MG PO DAILY urinary retention #30 Ref 1 CAP Continued Medications: Aspirin (Aspirin Low Strength) 81 Mg Chew 81 MG PO DAILY Blood Clot Prevention #90 Ref 3 EA Atorvastatin (Lipitor) 40 Mg Tab 40 MG PO DAILY Cholesterol Management #30 Ref 11 TAB Discontinued Medications: Carvedilol (Coreg) 3.125 Mg Tab 3.125 MG PO BID Blood Pressure Management #60 Ref 11 TAB Lisinopril (Lisinopril) 5 Mg Tab 10 MG PO DAILY Blood Pressure Management #30 Ref 11 TAB Nitroglycerin SL (Nitroglycerin SL) 0.4 Mg Subl 0.4 MG SL DIRECTED ONE TABLET UNDER THE TONGUE NEEDED FOR CHEST PAIN, MAY REPEAT EVERY FIVE MINUTES FOR A TOTAL OF 3 DOSES OR CALL 911 IF NO RELIEF PRN CHEST PAIN #25 Ref 11 TAB.SL Ticagrelor (Brilinta) 90 Mg Tab 90 MG PO BID Blood Clot Prevention #60 Ref 11 TAB Eliz Deshpande Aug 31, 2016 14:06
--- NOTE | 2016-08-31 14:06 | HHI.DS ---
Discharge Summary Admission Date Aug 26, 2016 at 05:32 Discharge Date: Aug 31, 2016 Admitting Diagnosis CAD / hx of STEMI/ stent (1) hx of STEMI / stent RCA Diagnosis: Secondary (2) Hyperlipidemia Diagnosis: Principal (3) 3-vessel coronary artery disease Diagnosis: Principal (4) S/P CABG x 3 Diagnosis: Secondary (5) Blood loss anemia Diagnosis: Secondary Procedures 1./ 1. Attempted Minimally Invasive Coronary Artery Bypass Grafting 2. Clampless Off-pump Coronary Artery Bypass Grafting x 3 with left internal mammary artery (HERNANDEZ) to left anterior descending (LAD), sequential reverse saphenous vein graft to Diagonal 1and to the Diagonal 2 2. Right Leg Endoscopic Vein [place] 3. Intraoperative Vein Mapping. . Brief History Subjective/Hospital Course: 66/ male , HX CAD, s/p STEMI in Jun s/p PCI stent to RCA per Dr Meme Guzmán, also multi vessel disease, EF 55 on Brilinta at home PMH : HTN, HLP surgery: 08/26 Attempted Minimally Invasive Coronary Artery Bypass Grafting Clampless Off-pump Coronary Artery Bypass Grafting x 3 with left internal mammary artery (HERNANDEZ) to left anterior descending (LAD), sequential reverse saphenous vein graft to Diagonal 1and to the Diagonal 2 Right Leg Endoscopic Vein [place] atraumatic intubation EBL 250cc/ cell saver 770, 2600ml crystalloids , - 800 urine extubated post surgery CBC/BMP: 08/29/16 0754 08/31/16 1010 Significant Findings Laboratory Tests Test 08/29/16 08/31/16 07:54 10:10 Red Blood Count 2.76 MIL/MM3 (4.50-5.90) Hemoglobin 8.5 GM/DL (13.0-17.0) Hematocrit 24.0 % (39.0-51.0) Platelet Count 104 TH/MM3 (150-450) Neutrophils (%) (Auto) 83.3 % (16.0-70.0) Lymphocytes (%) (Auto) 7.1 % (9.0-44.0) Monocytes (%) (Auto) 8.9 % (0.0-8.0) Lymphocytes # (Auto) 0.7 TH/MM3 (1.0-4.8) Sodium Level 135 MEQ/L 132 MEQ/L (136-145) (136-145) Random Glucose 121 MG/DL 169 MG/DL (74-106) (74-106) Calcium Level 8.1 MG/DL (8.5-10.1) Phosphorus Level 2.3 MG/DL (2.5-4.9) Total Protein 5.4 GM/DL (6.4-8.2) Albumin 2.4 GM/DL (3.4-5.0) Chloride Level 92 MEQ/L (98-107) Estimat Glomerular Filtration 81 ML/MIN (>89) Rate Imaging Last Impressions Chest X-Ray 08/31/16 0000 Signed Impressions: Service Date/Time: Wednesday, August 31, 2016 09:07 - CONCLUSION: 1. No pneumothorax status post removal of left chest and mediastinal tube. 2. Mild cardiomegaly. 3. Bibasilar atelectasis. Anup Saldana MD PE at Discharge GENERAL: SKIN: Warm and dry./ incision intact and well approximated to chest HEAD: Normocephalic. EYES: No scleral icterus. No injection or drainage. NECK: Supple, trachea midline. No JVD or lymphadenopathy. CARDIOVASCULAR: Regular rate and rhythm without murmurs, gallops, or rubs. RESPIRATORY: Breath sounds equal bilaterally. No accessory muscle use. GASTROINTESTINAL: Abdomen soft, non-tender, nondistended. MUSCULOSKELETAL: No cyanosis, or edema. BACK: Nontender without obvious deformity. No CVA tenderness. Hospital Course 1/5 up in chair, feels fair. on nasal cannula in NSR , no pressors +1848/24hrs / may consider low dose diuresis aggressive pulm toileting transfer to stepdown, leave chest tube in place 08/28 chest tube drained 130/12 hrs , then additional 100cc today will leave in till am / re-eval for removal + nausea and vomiting / abd soft + bowel sounds passing some flatus, will add reglan / change po pain meds check LFT amylase and lipase 08/29/16 c/o incisional pain 08/30/16 Doing better, diuresed well On room air 08/31 doing well , on room air no further nausea or vomiting + BM NSR stable for discharge home Pt Condition on Discharge: Good Discharge Disposition: Disch w/ Home Health Serv Discharge Instructions DIET: Follow Instructions for: Heart Healthy Diet Activities you can perform: Full Weight Bearing, Shower Only-No Bath Activities to avoid: Prolonged Standing, Strenuous Activity, Driving Additional Activity Instructio: no lifting >8lbs or gallon of milk Eliz Deshpande Aug 31, 2016 14:06
--- NOTE | 2016-09-03 14:06 | PD.CAR.PN ---
CVT Progress Note Subjective/Hospital Course: sts data discussed with pt RISK SCORES About the STS Risk Calculator Procedure: CAB Only Risk of Mortality: 0.589% Morbidity or Mortality: 5.978% Long Length of Stay: 1.736% Short Length of Stay: 69.369% Permanent Stroke: 0.666% Prolonged Ventilation: 3.401% DSW Infection: 0.124% Renal Failure: 1.175% Reoperation: 3.17% Result Diagram: 08/31/16 1010 Eliz Deshpande Sep 03, 2016 14:06
== END 2016-08-31 14:28 | disposition home health service (06) | DRG 236 ==
LOC: HSDI 08-26 05:32 → HCVR 08-26 14:08 → HCIN 08-27 09:53
PROVIDERS: ADMIT Thoracic Surgery (Cardiothoracic Vascular Surgery); ATTEND Thoracic Surgery (Cardiothoracic Vascular Surgery)
PROC: 06BP4ZZ Excision of Right Saphenous Vein, Percutaneous Endoscopic Approach (ICD-10-PCS; 2016-08-26)
PROC: B246ZZ4 Ultrasonography of Right and Left Heart, Transesophageal (ICD-10-PCS; 2016-08-26)
PROC: 02100Z9 Bypass Coronary Artery, One Artery from Left Internal Mammary, Open Approach (ICD-10-PCS; principal; 2016-08-26 07:04)
PROC: 021109W Bypass Coronary Artery, Two Arteries from Aorta with Autologous Venous Tissue, Open Approach (ICD-10-PCS; 2016-08-26 07:04)
DX: I25.10 Atherosclerotic heart disease of native coronary artery without angina pectoris (principal); I31.9 Disease of pericardium, unspecified; I10 Essential (primary) hypertension; E78.5 Hyperlipidemia, unspecified; I25.2 Old myocardial infarction; Z87.891 Personal history of nicotine dependence; Z95.5 Presence of coronary angioplasty implant and graft; Z82.49 Family history of ischemic heart disease and other diseases of the circulatory system; Z83.3 Family history of diabetes mellitus; R11.2 Nausea with vomiting, unspecified; D64.89 Other specified anemias
CPT/HCPCS: 36430; 71010; 71020; 76937; 80048; 80053; 80076; 81001; 82150; 82948; 83690; 83735; 84100; 84155; 85014; 85025; 85027; 86850; 86900; 86901; 86920; 93005; 94002; 94150; 94640; 94664; 94667; 94668; C1768; C9248; C9290; C9399; J0131; J0690; J1100; J1250; J1644; J1815; J1885; J1940; J2250; J2260; J2370; J2405; J2720; J2765; J3010; J3370; J3475; J3480; J7120; P9016

== ENCOUNTER → 2017-03-17 | Day surgery (SDC) | payer OTHER ==
[~2017-03-17] VITALS: Ht 172.7 cm; Wt 71.3 kg
[~2017-03-17] MED LIST changes: +*ONDANSETRON 4 MG VIAL PERIprocedural Use ONLY ONE; +ACETAMINOPHEN 1000 MG/100 ML VIAL IV ONE; +ACETAMINOPHEN/HYDROcodone 325 MG/5 MG TAB PO PRN; -BRIL90TA PO; +BUPIVACAINE/EPINEPHRINE 0.25% 50 ML VIAL ONE; +CARV3.12 PO; -CARV3.125 PO; +CHLORHEXIDINE GLUCONATE 2 % 1 PACK (2 CLOTHS) TOPICAL PRN; +DEXAMETHASONE SOD PHOS 4 MG/ML VIAL ONE; +DO NOT ADM ANY ANTICOAGULANT DRUGS PRN; +DOCU100C PO; +FAMOTIDINE 20 MG/2 ML VIAL ONE; +INSULIN HUMAN REGULAR 1,000 UNITS/10 ML VIAL SQ PRN; +KETOROLAC TROMETHAMINE 60 MG/2 ML (IM) VIAL IM ONE; +LACTATED RINGER'S 1000 ML IV PRN; -LISI-519 PO; +METOPROLOL TARTRATE 25 MG TAB PO PRN; +MIDAZOLAM HCL 2 MG/2 ML VIAL ONE; +MORPHINE SULFATE 4 MG/ML INJ IV PRN; -NITR1SUB3 SL; +ONDANSETRON HCL 4 MG/2 ML VIAL IV PUSH ONE; +ONDANSETRON HCL 4 MG/2 ML VIAL IV PUSH PRN; +PLAV75TA29 PO; +POVIDONE IODINE 5% (ANTISEPSIS KIT) 4 APPLICATIONS EACH NARE PRN; +PROPOFOL 200 MG/20 ML AMP IV ONE; +SODIUM CHLORID 0.9% 500 ML IV PRN; +THERM PO; +ceFAZolin 1,000 MG/NS 100 ML IV SCH; +ePHEDrine/NS 25 MG/5 ML SYR IV ONE; +fentaNYL CITRATE 250 MCG/5 ML AMP ONE
[2017-03-17 09:06] VITALS: BP 116/79; PULSE 62; RESP 18; TEMP 98.2; O2SAT 98
[2017-03-17 09:21] LABS: BASOPHIL # 0.1 TH/MM3 (0-0.2); BASOPHIL % 0.8 % (0.0-2.0); EOSINOPHIL # 0.2 TH/MM3 (0-0.4); EOSINOPHIL % 3.3 % (0.0-4.0); HEMATOCRIT 42.5 % (39.0-51.0); HEMO FLAGS DIFF FINAL; LYMPH % 17.9 % (9.0-44.0); LYMPHOCYTE # 1.3 TH/MM3 (1.0-4.8); MEAN CELL VOLUME 87.6 FL (80.0-100.0); MEAN CORPUSCULAR HEMOGLOBIN 30.8 PG (27.0-34.0); MEAN CORPUSCULAR HGB CONC 35.2 % (32.0-36.0); MONO % 7.2 % (0.0-8.0); NEUT % 70.8 % (16.0-70.0); PLATELET COUNT 173 TH/MM3 (150-450); RED BLOOD COUNT 4.86 MIL/MM3 (4.50-5.90); RED CELL DISTRIBUTION WIDTH 13.8 % (11.6-17.2); WHITE BLOOD COUNT 7.1 TH/MM3 (4.0-11.0)
[2017-03-17 09:25] LABS: APTT (PATIENT) 29.6 SEC (24.3-30.1); PROTHROMBIN TIME - PATIENT 11.4 SEC (9.8-11.6)
[2017-03-17 09:36] LABS: BICARBONATE 25.2 MEQ/L (21.0-32.0); POTASSIUM 4.1 MEQ/L (3.5-5.1)
[2017-03-17 15:00] VITALS: BP 105/68; PULSE 74; RESP 20; TEMP 97.4; O2SAT 94
--- NOTE | 2017-03-19 14:17 | MP ---
cc: LASHAWN OSEI M.D. DATE OF SURGERY: 03/17/2017 PROCEDURE 1. Bilateral inguinal hernia repair with mesh. 2. 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 PREOPERATIVE DIAGNOSIS Incarcerated bilateral inguinal hernias. POSTOPERATIVE DIAGNOSIS Incarcerated bilateral inguinal hernias. ANESTHESIA LMA. SURGEON Paul. [employer] Dino Courtney, JEFFREY ESTIMATED BLOOD LOSS Less than 10 mL. FLUIDS 750 mL crystalloid. COMPLICATIONS None. DRAINS None. SPECIMEN Lipomas of the cord to pathology. PROCEDURE IN DETAIL The patient was taken to the operating room and placed on the operating table in the supine position. After an adequate level of laryngeal mask anesthesia was instituted the lower abdomen and groin were shaved, prepped and draped. A timeout was taken confirming the correct patient, site and procedures to be performed. Skin and subcutaneous tissue was infiltrated with local anesthetic and an incision made in the left groin in an oblique fashion directly over the hernia. Dissection was carried down to the hernia which was encountered. The hernia was dissected off of the spermatic cord structures. When this had been accomplished the external oblique fascia came into view. This allowed for splitting of the external oblique fashion in the direction of the fibers. This was accomplished and the underlying tissues swept free. The extremely large hernia was dissected off of the spermatic cord structures including the vas deferens. The vas deferens was splayed inferiorly and the rest of the spermatic cord vessels were splayed anteromedially. These were pulled back together and at this point the hernia was able to be reduced into the abdominal cavity. This was composed of a most entirely direct inguinal hernia that was extremely large. When this had been completed the defect was partially closed down with interrupted 2-0 Prolene sutures to minimize risk of herniation onto the mesh. A 3 x 6 inch piece of Atrium mesh was then brought up and transfixed to the pubic tubercle with 2-0 Prolene suture. This was then run along the shelving edge of the inguinal ligament to complete the lateral edge of the repair. The mesh was slit longitudinally and then trimmed to size to fit the defect. Interrupted 2-0 Prolene sutures were then placed medially to complete the medial edge of the repair. The medial leaf of mesh was brought over the lateral leaf and fixed down to the inguinal ligament to create a new internal ring. When this was completed and hemostasis was assured, the external oblique fascia was closed with 3-0 Vicryl suture in a running fashion. Care was taken to exclude the underlying tissues from the closure. The remaining local anesthetic was injected into the subcutaneous tissue and transversalis fascia. When this was completed the wound was closed with interrupted 3-0 Vicryl suture in an interrupted buried fashion and the skin closed with 5-0 PDS in a running subcuticular fashion. Attention was then turned to the right side. Skin and subcutaneous tissue was infiltrated with local anesthetic. An incision was made down through the subcutaneous tissue to the hernia. This was reduced somewhat and the spermatic cord structures were brought up on a [place] drain. The external oblique fascia was opened in the direction of the fibers and the underlying tissues swept free from this. The patient was noted on the side to once again have an essentially direct inguinal hernia. It should be noted on both sides that lipomas of the spermatic cord were removed; on the left side it was relatively small but on the right side it was fairly substantial. This was dissected back to the level of the internal ring, ligated with a Vicryl suture and excised. This allowed for decreased size of the structures coming out of the abdominal cavity and would allow for more secure closure with hernia repair. The hernia sac was reduced into the abdominal cavity after dissecting it back to the internal ring. A 3 x 6 inch piece of Atrium mesh was then brought up and transfixed to the pubic tubercle with 2-0 Prolene suture. This was then run along the shelving edge of the inguinal ligament to complete the lateral edge of the repair. The mesh was slit longitudinally to allow for egress of the cord structures and then the mesh was trimmed to fit the defect. Interrupted 2-0 Prolene sutures were used to transfix the mesh to the transversalis fascia. Care was taken on this side to avoid placing the sutures near the iliohypogastric nerve which was easily identified on this side. The medial leaf of mesh was brought over the lateral leaf of mesh and transfixed at multiple points with 2-0 Prolene suture to the inguinal ligament. The internal ring was closed down with interrupted 2-0 Prolene sutures to minimize risk of recurrence. When this was completed and hemostasis was assured, the external oblique fascia was closed with a running 3-0 Vicryl suture. Care was taken to exclude the underlying tissues from the closure. The wound was then closed with interrupted 3-0 Vicryl suture after injecting the remaining local anesthetic into the transversalis fascia and subcutaneous tissue. The skin was closed with 5-0 PDS in a running subcuticular fashion and both wounds were dressed with Steri-Strips, Telfa and Tegaderm. The patient was extubated and taken back to the recovery room in stable condition. He tolerated the procedure well. MD LIZA Baird/PHONG /2:47 PM /2:02 PM
== END | disposition home or self-care (01) ==
LOC: HSDC 08:19
PROVIDERS: ATTEND Surgery Trauma Surgery
DX: K40.00 Bilateral inguinal hernia, with obstruction, without gangrene, not specified as recurrent (principal); D17.6 Benign lipomatous neoplasm of spermatic cord; E78.5 Hyperlipidemia, unspecified; I25.2 Old myocardial infarction; Z86.73 Personal history of transient ischemic attack (TIA), and cerebral infarction without residual deficits; Z01.818 Encounter for other preprocedural examination; Z01.810 Encounter for preprocedural cardiovascular examination; Z79.02 Long term (current) use of antithrombotics/antiplatelets
CPT/HCPCS: 00830; 49505; 80048; 85025; 85610; 85730; 88304; C1781; J0131; J1100; J1885; J2250; J2405; J3010

== ENCOUNTER 2017-12-07 18:36 | Emergency (ER) | payer OTHER ==
[~2017-12-07] VITALS: Ht 172.7 cm; Wt 77.3 kg
[~2017-12-07 18:36] MED LIST changes: -*ONDANSETRON 4 MG VIAL PERIprocedural Use ONLY ONE; -ACETAMINOPHEN 1000 MG/100 ML VIAL IV ONE; -ACETAMINOPHEN/HYDROcodone 325 MG/5 MG TAB PO PRN; -BUPIVACAINE/EPINEPHRINE 0.25% 50 ML VIAL ONE; -CHLORHEXIDINE GLUCONATE 2 % 1 PACK (2 CLOTHS) TOPICAL PRN; -DEXAMETHASONE SOD PHOS 4 MG/ML VIAL ONE; -DO NOT ADM ANY ANTICOAGULANT DRUGS PRN; -DOCU100C PO; +DOCU100C15 PO; -FAMOTIDINE 20 MG/2 ML VIAL ONE; -INSULIN HUMAN REGULAR 1,000 UNITS/10 ML VIAL SQ PRN; -KETOROLAC TROMETHAMINE 60 MG/2 ML (IM) VIAL IM ONE; -LACTATED RINGER'S 1000 ML IV PRN; -METOPROLOL TARTRATE 25 MG TAB PO PRN; -MIDAZOLAM HCL 2 MG/2 ML VIAL ONE; -MORPHINE SULFATE 4 MG/ML INJ IV PRN; -ONDANSETRON HCL 4 MG/2 ML VIAL IV PUSH ONE; -ONDANSETRON HCL 4 MG/2 ML VIAL IV PUSH PRN; -POVIDONE IODINE 5% (ANTISEPSIS KIT) 4 APPLICATIONS EACH NARE PRN; -PROPOFOL 200 MG/20 ML AMP IV ONE; -SODIUM CHLORID 0.9% 500 ML IV PRN; -ceFAZolin 1,000 MG/NS 100 ML IV SCH; -ePHEDrine/NS 25 MG/5 ML SYR IV ONE; -fentaNYL CITRATE 250 MCG/5 ML AMP ONE
[2017-12-07 18:42] VITALS: BP 152/98; PULSE 72; RESP 20; TEMP 98; O2SAT 99
--- NOTE | 2017-12-07 20:05 | PD ---
HPI Chief Complaint: GI Complaint Time Seen by Provider: 19:49 Travel History International Travel<30 days: No Contact w/Intl Traveler<30days: No Traveled to known affect area: No History of Present Illness HPI The patient is a 67 year old male who presents to the [facility] emergency department with a history of bright red blood per rectum that he first noticed when he was urinating 2 hours prior to arrival. He reports that he has had bleeding from his rectum in the past related to hemorrhoids, however the bleeding will usually stop after 30 minutes. The patient reports that he has a history of hemorrhoids that developed with pushing to urinate from prostate hypertrophy. He reports that this has improved since he started Flomax. The patient reports that he was urinating and then felt something come out of his rectum. He went to examine the area and noticed that there was a large blood clot. He reports that since then he has continued to have bleeding on toilet paper that he is applied to the area. He was concerned that the bleeding was not stopping. He reports that he is on a low-dose aspirin daily as well as Plavix. He denies having any blood in his stool or black or tarry stools prior to this. He reports that he last moved his bowels normally this morning. He denies having any nausea or vomiting. He denies having any abdominal pain. The patient denies having any lightheaded sensation, chest pressure, chest pain , or shortness of breath. On review of systems otherwise, he denies having any known recent fevers, cough or congestion, neck pain, diarrhea, urinary symptoms , or neurologic symptoms. [facility] Past Medical History Narrative Medical The patient's past medical history is significant for coronary artery disease with prior myocardial infarction status post coronary artery bypass grafting of 3 vessels in August 2016 and 3 prior stents being placed. The patient's dormitory maid is Dr. Ross Guzmán. The patient has a history of hyperlipidemia, bilateral inguinal hernia status post surgical repair, history of a TIA, history of hypertension, history of hemorrhoids. The patient denies ever having colonoscopy previously. The patient is followed for his primary care by the [facility] clinic. Hx Anticoagulant Therapy: Yes Cancer: No Cardiovascular Problems: Yes (MYOCARDIAL INFARCTION 2015) High Cholesterol: Yes Diabetes: No Endocrine: No Genitourinary: No Hepatitis: No Hiatal Hernia: No Hypertension: Yes Immune Disorder: No Musculoskeletal: No Neurologic: No Psychiatric: No Reproductive: No Respiratory: No Immunizations Current: Yes (SINGLES 2015) Thyroid Disease: No Past Surgical History Narrative Surgical The patient's past surgical history is significant for bilateral inguinal hernia repair, coronary artery bypass grafting of 3 vessels, cardiac catheterization with 3 stents being placed, and a tonsillectomy Abdominal Surgery: No AICD: No Body Medical Devices: CARDIAC STENTs x 3 Cardiac Surgery: Yes (STENT PLACEMENT x 3, 3 way cabg) Ear Surgery: No Endocrine Surgery: No Eye Surgery: No Genitourinary Surgery: No Gynecologic Surgery: No Joint Replacement: No Oral Surgery: Yes (tonsillectomy) Pacemaker: No Thoracic Surgery: Yes Social History Alcohol Use: Yes Tobacco Use: No (quit 10 years ago) Substance Use: No Allergies-Medications (Allergen,Severity, Reaction): Coded Allergies: No Known Allergies (Unverified , 03/15/17) Reported Meds & Prescriptions Reported Meds & Active Scripts Active Anucort-Hc Supp (Hydrocortisone Acetate Supp) 25 Mg Supp 25 Mg RECTAL BID 5 Days Thera M Plus (Multivitamins/Minerals Therapeutic) 1 Tab 1 Tab PO DAILY Plavix (Clopidogrel Bisulfate) 75 Mg Tab 75 Mg PO DAILY Aspirin Low Strength (Aspirin) 81 Mg Chew 81 Mg PO DAILY Lipitor (Atorvastatin Calcium) 40 Mg Tab 40 Mg PO DAILY Reported Tamsulosin (Tamsulosin HCl) 0.4 Mg Cap 0.4 Mg DAILY Docusate Sodium 100 Mg Cap 100 Mg PO HS PRN Carvedilol 3.125 Mg Tab 3.125 Mg PO BID Review of Systems Except as stated in HPI: all other systems reviewed are Neg General / Constitutional: No: Fever Eyes: No: Visual changes HENT: No: Headaches, Lightheadedness, Congestion Cardiovascular: No: Chest Pain or Discomfort, Dyspnea on exertion Respiratory: No: Cough, Shortness of Breath Gastrointestinal: No: Nausea, Vomiting, Diarrhea, Abdominal Pain, Changes in Bowel Habits, Indigestion, Loss of Appetite Genitourinary: No: Dysuria Musculoskeletal: No: Pain Skin: No Rash Neurologic: No: Weakness, Focal Abnormalities, Change in Mentation, Slurred Speech, Sensory Disturbance Psychiatric: No: Depression Endocrine: No: Polydipsia Hematologic/Lymphatic: No: Easy Bruising Physical Exam Narrative General: The patient is a well-developed well-nourished male in no acute distress. Head and Neck exam: Head is normocephalic atraumatic. Eyes: EOMI, pupils are equal round and reactive to light. Nose: Midline septum with pink mucous membranes Mouth: Dentition unremarkable. Moist mucus membranes. Posterior oropharynx is not erythematous. No tonsillar hypertrophy. Uvula midline. Airway patent. Neck: No palpable lymphadenopathy. No nuchal rigidity. No thyromegaly. Cardiovascular: Regular rate and rhythm without murmurs, gallops, or rubs. No pulse deficit to the extremities on simultaneous auscultation and palpation of his radial artery. Lungs: Clear to auscultation bilaterally. No wheezes, rhonchi, or rales. Abdomen: Soft, without tenderness to palpation in all 4 quadrants of the abdomen. No guarding, rebound, or rigidity. Normal bowel sounds are audible. No tenderness on palpation of McBurney's point. Negative Sánchez sign. Extremities: No clubbing, cyanosis, or edema. 2+ pulses in all 4 extremities. No calf tenderness on palpation. Back: No spinous process tenderness to palpation. No costovertebral angle tenderness to palpation. Neurologic Exam: Grossly nonfocal. Skin Exam: No rash noted. Intact skin that is warm and dry. RECTAL EXAM: The patient is noted to have external hemorrhoids that do not appear to be inflamed. On rectal examination the patient also has a palpable internal hemorrhoid that is soft. The patient has some blood noted on toilet paper in his underwear, however no active bleeding at this time. Scant amount of blood was noted on the glove after digital examination. This was of course Hemoccult positive. There was no significant stool in the rectal vault. Data Data Last Documented VS Vital Signs Date Time Temp Pulse Resp B/P (MAP) Pulse Ox O2 Delivery O2 Flow Rate FiO2 12/07/17 20:18 66 16 141/95 (110) 95 Room Air 12/07/17 18:42 98.0 Orders Orders Complete Blood Count With Diff (12/07/17 18:45) Comprehensive Metabolic Panel (12/07/17 18:45) Prothrombin Time / Inr (Pt) (12/07/17 18:45) Act Partial Throm Time (Ptt) (12/07/17 18:45) Type And Screen (12/07/17 18:45) B-Type Natriuretic Peptide (12/07/17 19:50) Sodium Chlor 0.9% 1000 Ml Inj (Ns 1000 M (12/07/17 20:15) Ct Abd/Pel W Iv Contrast(Rout) (12/07/17 21:21) Lipase (12/07/17 20:15) Magnesium (Mg) (12/07/17 20:15) Troponin I (12/07/17 20:15) Labs Laboratory Tests Test 12/07/17 20:15 White Blood Count 7.2 TH/MM3 Red Blood Count 4.63 MIL/MM3 Hemoglobin 14.8 GM/DL Hematocrit 41.1 % Mean Corpuscular Volume 88.7 FL Mean Corpuscular Hemoglobin 31.9 PG Mean Corpuscular Hemoglobin Concent 35.9 % Red Cell Distribution Width 13.2 % Platelet Count 177 TH/MM3 Mean Platelet Volume 9.2 FL Neutrophils (%) (Auto) 67.2 % Lymphocytes (%) (Auto) 21.4 % Monocytes (%) (Auto) 7.6 % Eosinophils (%) (Auto) 3.0 % Basophils (%) (Auto) 0.8 % Neutrophils # (Auto) 4.8 TH/MM3 Lymphocytes # (Auto) 1.5 TH/MM3 Monocytes # (Auto) 0.5 TH/MM3 Eosinophils # (Auto) 0.2 TH/MM3 Basophils # (Auto) 0.1 TH/MM3 CBC Comment DIFF FINAL Differential Comment Prothrombin Time 11.2 SEC Prothromb Time International Ratio 1.1 RATIO Activated Partial Thromboplast Time 27.9 SEC Blood Urea Nitrogen 20 MG/DL Creatinine 1.09 MG/DL Random Glucose 96 MG/DL Total Protein 7.5 GM/DL Albumin 3.9 GM/DL Calcium Level 9.1 MG/DL Magnesium Level 2.0 MG/DL Alkaline Phosphatase 66 U/L Aspartate Amino Transf (AST/SGOT) 21 U/L Alanine Aminotransferase (ALT/SGPT) 24 U/L Total Bilirubin 0.3 MG/DL Sodium Level 141 MEQ/L Potassium Level 4.2 MEQ/L Chloride Level 106 MEQ/L Carbon Dioxide Level 28.9 MEQ/L Anion Gap 6 MEQ/L Estimat Glomerular Filtration Rate 67 ML/MIN Troponin I LESS THAN 0.02 NG/ML B-Type Natriuretic Peptide 21 PG/ML Lipase 192 U/L MDM Medical Decision Making Medical Screen Exam Complete: Yes Emergency Medical Condition: Yes Medical Record Reviewed: Yes Differential Diagnosis Hemorrhoidal bleed, versus diverticular bleed, versus AVM malformation, versus colon cancer, versus rectal cancer Narrative Course During the course of the patient's emergency department visit, the patient's history, examination, and differential diagnosis were reviewed with the patient. The patient was placed on a child monitor with oximetry and frequent blood pressure monitoring. The patient had IV access obtained and blood work sent for analysis. The patient was initially provided normal saline at 70 mL/h. The patient's laboratory studies were reviewed and remarkable for a CBC that is within normal limits, CMP is remarkable for BUN of 20, GFR of 67, cardiac enzymes within normal limits, BNP 21, lipase 192. PT 11.2, PTT 27.9. Radiology studies were reviewed and remarkable for a CT scan of the abdomen and pelvis that showed diverticulosis without diverticulitis, bladder diverticulum noted, infrarenal abdominal aortic aneurysm that measures 2.5 x 2.4 cm and a left renal cyst. The patient on reexamination reports that he has been up to the bathroom and has had no recurrences of bleeding. The patient's vital signs have remained stable. The patient is not anemic on his laboratory studies, the patient was given a copy of the CT scan findings for follow-up with his primary care physician regarding his abdominal aortic aneurysm. The patient was given the name of the lens generator on-call, for follow-up with as he will need colonoscopy to further evaluate the rectal bleeding. The patient is resting comfortably and feels better, is alert and in no distress. The patient's results and examination findings were discussed with the patient. The repeat examination is unremarkable and benign. The history, exam, diagnostic testing, and current condition do not suggest any significant pathology to warrant further testing, continued ED treatment, admission, or surgical evaluation at this point. The vital signs have been stable. The patient does not have uncontrollable pain, intractable vomiting, or other significant symptoms. The patient's condition is stable and appropriate for discharge. The patient will pursue further outpatient evaluation with a primary care physician or other designated or consulting physician as indicated in the discharge instructions. The patient expressed understanding and was agreeable with this plan. [facility] Point of Care Internal Pos. & Neg. Controls: Passed Fecal Specimen Occult Blood: Positive Diagnosis Primary Impression: Bright red blood per rectum Referrals: Avani Betancourt MD 1 day Primary Care Physician 1 day Patient Instructions: General Instructions, Rectal Bleeding (ED) Med/Other Pt SpecificInfo: Prescription(s) given Scripts Hydrocortisone Acetate Supp (Anucort-Hc Supp) 25 Mg Supp 25 MG RECTAL BID for Hemorrhoids for 5 Days, #10 SUPP 0 Refills Prov: Evelin Guzmán MD 12/07/17 Disposition: 01 DISCHARGE HOME Condition: Stable Evelin Guzmán MD Dec 07, 2017 20:05
[2017-12-07] MEDS ORDERED: SODIUM CHLOR 0.9% 1000 ML INJ 1,000 ML IV SCH (20:15)
[2017-12-07 20:18] VITALS: BP 141/95; PULSE 66; RESP 16; O2SAT 95
[2017-12-07] MEDS ORDERED: TAMS0.4C4 (20:22)
[2017-12-07] MEDS ORDERED: ANUC25SU RECTAL (20:54)
[2017-12-07 21:27] LABS: AUTOMATED NEUTROPHIL # 4.8 TH/MM3 (1.8-7.7); BASOPHIL # 0.1 TH/MM3 (0-0.2); BASOPHIL % 0.8 % (0.0-2.0); EOSINOPHIL # 0.2 TH/MM3 (0-0.4); HEMATOCRIT 41.1 % (39.0-51.0); HEMOGLOBIN 14.8 GM/DL (13.0-17.0); LYMPH % 21.4 % (9.0-44.0); LYMPHOCYTE # 1.5 TH/MM3 (1.0-4.8); MEAN CELL VOLUME 88.7 FL (80.0-100.0); MEAN CORPUSCULAR HEMOGLOBIN 31.9 PG (27.0-34.0); MEAN CORPUSCULAR HGB CONC 35.9 % (32.0-36.0); MEAN PLATELET VOLUME 9.2 FL (7.0-11.0); MONO % 7.6 % (0.0-8.0); MONOCYTE # 0.5 TH/MM3 (0-0.9); NEUT % 67.2 % (16.0-70.0); PLATELET COUNT 177 TH/MM3 (150-450); RED BLOOD COUNT 4.63 MIL/MM3 (4.50-5.90); RED CELL DISTRIBUTION WIDTH 13.2 % (11.6-17.2); WHITE BLOOD COUNT 7.2 TH/MM3 (4.0-11.0)
[2017-12-07 21:43] LABS: ALBUMIN 3.9 GM/DL (3.4-5.0); AST (GOT) 21 U/L (15-37); BICARBONATE 28.9 MEQ/L (21.0-32.0); BLOOD UREA NITROGEN 20 MG/DL (7-18); CALCIUM 9.1 MG/DL (8.5-10.1); CHLORIDE 106 MEQ/L (98-107); CREATININE 1.09 MG/DL (0.60-1.30); GLOMERULAR FILTRATION RATE 67 ML/MIN (>89); GLUCOSE,RANDOM 96 MG/DL (74-106); SODIUM (NA) 141 MEQ/L (136-145)
[2017-12-07 21:44] LABS: ALT (GPT) 24 U/L (12-78); INTERNATIONAL NORMALIZED RATIO 1.1 RATIO; PROTHROMBIN TIME - PATIENT 11.2 SEC (9.8-11.6)
[2017-12-07 21:48] LABS: ALKALINE PHOSPHATASE 66 U/L (45-117); TOTAL BILIRUBIN ADULT 0.3 MG/DL (0.2-1.0); TOTAL PROTEIN 7.5 GM/DL (6.4-8.2); TROPONIN I LESS THAN 0.02 NG/ML (0.02-0.05)
--- NOTE | 2017-12-07 22:10 | RADRPT ---
EXAM DATE/TIME: 12/07/2017 21:57 [facility] COMPARISON: No previous studies available for comparison. INDICATIONS : Abdomen pain. Blood in stool. IV CONTRAST: 96 cc Omnipaque 350 (iohexol) IV ORAL CONTRAST: No oral contrast ingested. RADIATION DOSE: 10.35 CTDIvol (mGy) MEDICAL HISTORY : Cardiovascular disease. Hypertension. Hernia, hiatal. SURGICAL HISTORY : CABG ENCOUNTER: Initial ACUITY: 1 day PAIN SCALE: 5/10 LOCATION: Bilateral abdomen TECHNIQUE: Volumetric scanning of the abdomen and pelvis was performed. Using automated exposure control and ad justment of the mA and/or kV according to patient size, radiation dose was kept as low as reasonably achievable to obtain optimal diagnostic quality images. DICOM format image data is available electro nically for review and comparison. FINDINGS: LOWER LUNGS: The visualized lower lungs are clear. LIVER: Homogeneous density without lesion. There is no dilation of the biliary tree. No calcified gallston es. SPLEEN: Normal size without lesion. PANCREAS: Within normal limits. KIDNEYS: Normal in size and shape. There is no mass, stone or hydronephrosis. Left renal cyst. ADRENAL GLANDS: Within normal limits. VASCULAR: Infrarenal abdominal aortic aneurysm measures 2.5 x 2.4 cm.. BOWEL/MESENTERY: Diverticulosis of the colon. There is no free intraperitoneal air or fluid. ABDOMINAL WALL: Within normal limits. RETROPERITONEUM: There is no lymphadenopathy. BLADDER: No wall thickening or mass. Cystic lesion along the posterior left aspect of the urinary bladder lisbeth ures 5.8 x 4.2 cm likely bladder diverticulum. REPRODUCTIVE: Within normal limits. INGUINAL: There is no lymphadenopathy or hernia. MUSCULOSKELETAL: Within normal limits for patient age. CONCLUSION: 1. Diverticulosis without diverticulitis. 2. Bladder diverticulum. 3. Infrarenal abdominal aortic aneurysm. 4. Left renal cyst. Andrea Genao MD on December 07, 2017 at 22:05 Board Certified Radiologist. This report was verified electronically.
[2017-12-07] MEDS ORDERED: IOHEXOL 350 MG/ML 10 ML VIAL (for RAD DIAG) IVCONTRAST ONE (22:15)
== END 2017-12-07 22:41 | disposition home or self-care (01) ==
LOC: NEPE 18:36
DX: K62.5 Hemorrhage of anus and rectum (principal); I71.4 Abdominal aortic aneurysm, without rupture; N28.1 Cyst of kidney, acquired; E78.00 Pure hypercholesterolemia, unspecified; I10 Essential (primary) hypertension; I25.2 Old myocardial infarction; K57.30 Diverticulosis of large intestine without perforation or abscess without bleeding; Z79.02 Long term (current) use of antithrombotics/antiplatelets; Z79.899 Other long term (current) drug therapy; Z87.891 Personal history of nicotine dependence
CPT/HCPCS: 74177; 80053; 83690; 83735; 83880; 84484; 85025; 85610; 85730; 86850; 86900; 86901; 99285; J7030; Q9967